=== PATIENT | female | born 1950 | race Caucasian/White ===

== ENCOUNTER → 2016-11-17 | Outpatient (CLI) | payer MEDICARE, BC ==
--- NOTE | 2016-11-17 13:21 | RADIOLOGY REPORT (SQ) ---
EXAM DESCRIPTION: CT HEAD WITHOUT COMPLETED DATE/TIME: 11/17/2016 12:07 pm REASON FOR STUDY: DIZZINESS R42 DIZZINESS AND GIDDINESS COMPARISON: None. TECHNIQUE: Axial images acquired through the brain without intravenous contrast. Images reviewed wi th bone, brain and subdural windows. Images stored on PACS. All CT scanners at this facility use dose modulation, iterative reconstruction, and/or weight based d osing when appropriate to reduce radiation dose to as low as reasonably achievable (ALARA). [facility]: Dose Right [facility]: CareDose [facility]: Dose Right [facility]: Teradose 4D [facility]: Grata RADIATION DOSE: 48.95 mGy. LIMITATIONS: None. FINDINGS: VENTRICLES: Normal size and contour. CEREBRUM: No masses. No hemorrhage. No midline shift. Normal sherman/white matter differentiation. N o evidence for acute infarction. CEREBELLUM: No masses. No hemorrhage. No alteration of density. No evidence for acute infarction. EXTRAAXIAL SPACES: No fluid collections. No masses. ORBITS AND GLOBE: No intra- or extraconal masses. Normal contour of globe without masses. CALVARIUM: No fracture. PARANASAL SINUSES: Small mucosal polyp or retention cyst is identified in the left maxillary antra. SOFT TISSUES: No mass or hematoma. OTHER: No other significant finding. IMPRESSION: NORMAL BRAIN CT WITHOUT CONTRAST. TECHNICAL DOCUMENTATION: JOB ID: [id number] Quality ID # [id number]: Final reports with documentation of one or more dose reduction techniques (e.g., Au tomated exposure control, adjustment of the mA and/or kV according to patient size, use of iterative reconstruction technique) 2010 [employer]- All Rights Reserved
== END ==
LOC: RAD 11:56
PROVIDERS: ATTEND Physician Assistant Medical
DX: R42 Dizziness and giddiness (principal)
CPT/HCPCS: 70450

== ENCOUNTER → 2017-01-03 | Outpatient (CLI) | payer MEDICARE, BC ==
--- NOTE | 2017-01-03 17:11 | WOMENS IMAGING REPORT ---
EXAM DESCRIPTION: 3D SCREENING MAMMO BILAT COMPLETED DATE/TIME: 01/03/2017 10:43 am REASON FOR STUDY: ROUTINE SCREENING; Z12.31 Z12.31 ENCNTR SCREEN MAMMOGRAM FOR MALIGNANT NEOPLASM O F NICK COMPARISON: 2008, 2014 TECHNIQUE: Standard craniocaudal and mediolateral oblique views of each breast recorded using digita l acquisition and breast tomosynthesis. LIMITATIONS: None. FINDINGS: No masses, calcifications or architectural distortion. No areas of suspicion. Read with the assistance of CAD. .[facility] - R2 Cenova Version 1.3 .[facility] Imaging - R2 Cenova Version 1.3 .[facility] - R2 Cenova Version 2.4 .[facility] [place] R2 Cenova Version 2.4 .[facility] - R2 [employer] Version 9.2 IMPRESSION: NORMAL MAMMOGRAM. BIRADS 1. BREAST DENSITY: a. The breasts are almost entirely fatty. BIRAD: 1 NEGATIVE RECOMMENDATION: ROUTINE SCREENING COMMENT: The patient has been notified of the results by letter per [place] requirements. Additional no tification policies are in place for contacting patient with suspicious or incomplete findings. Quality ID #[id number]: The [employer] recommends an annual screening mammogram for women aged 40 years or over. This facility utilizes a reminder system to ensure that all patients receive reminder letters, and/or direct phone calls for appointments. This includes reminders for routine scr eening mammograms, diagnostic mammograms, or other Breast Imaging Interventions when appropriate. Th is patient will be placed in the appropriate reminder system. The [employer] (ACR) has developed recommendations for screening MRI of the breast s in certain patient populations, to be used in conjunction with mammography. Breast MRI surveillanc e may be appropriate for women with more than 20% lifetime risk of developing breast cancer as deter mined by genetic testing, significant family history of the disease, or history of mantle radiation f or Hodgkins Disease. ACR Practice Guidelines 2008. DBT Technology DBT is a type of tomographic mammography. With conventional mammography, overlapping breast tissue ma y make lesions difficult to detect, even with good compression. DBT uses an x-ray tube that rotates a round the breast, taking images at different angles. These images are then combined to create thin sl ices of the breast that the radiologist can view as a 3D reconstruction. The [employer] unit can perform full-field digital mammograms (2D imaging); or DBT (3D imaging); or both, in a combination mode that quickly performs both the mammogram and the tomosynthesis scan while the breast is still compressed. PQRS 6045F: Fluoroscopic imaging is not utilized for breast tomosynthesis. TECHNICAL DOCUMENTATION: FINDING NUMBER: (1) ASSESSMENT: (1) JOB ID: [id number] [employer]- All Rights Reserved
== END ==
LOC: WI 11:07
PROVIDERS: ATTEND Physician Assistant
DX: Z12.31 Encounter for screening mammogram for malignant neoplasm of breast (principal)
CPT/HCPCS: 77063; G0202; 77067

== ENCOUNTER 2017-08-19 15:02 | Inpatient (IN) | payer MEDICARE, BC, OTHER ==
[2017-08-19] MEDS ORDERED: HYDROMORPHONE HCL INJ/PF 2 MG/ML AMPULE IV ONE (15:53)
[2017-08-19] MEDS ORDERED: ONDANSETRON HCL INJ/PF 4 MG/2 ML SDV IV ONE ×2 (15:53→17:20)
--- NOTE | 2017-08-19 15:56 | ER Document Report ---
ED Medical Screen (RME) - General Chief Complaint: Abdominal Pain Stated Complaint: RIGHT SIDE ABDOMINAL PAIN Time Seen by Provider: 08/19/17 15:46 Mode of Arrival: Wheelchair Information source: Patient Notes: 66 y.o female presents to the ED with RLQ pain and nausea of onset last night. She states that she took a magnesium citrate last night because she thought it might be gas but had a normal BM this morning. Pt denies any fever. Pt still has her appendix. TRAVEL OUTSIDE OF THE [place] IN LAST 30 DAYS: No - Related Data Allergies/Adverse Reactions: No Known Allergies Allergy (Verified 08/19/17 15:04) Past Medical History - General Information source: Patient - Social History Chew tobacco use (# tins/day): No Frequency of alcohol use: None Drug Abuse: None Pulmonary Medical History: Reports: Hx Bronchitis - sob Renal/ Medical History: Denies: Hx Peritoneal Dialysis Musculoskeltal Medical History: Reports Hx Arthritis - Immunizations Hx Diphtheria, Pertussis, Tetanus Vaccination: Yes Review of Systems - Review of Systems Constitutional: denies: Fever Gastrointestinal: Abdominal pain - RLQ, Nausea Physical Exam - Vital signs Vitals: Temp Pulse Resp BP Pulse Ox 97.5 F 78 18 139/76 H 98 08/19/17 15:09 08/19/17 15:09 08/19/17 15:09 08/19/17 15:09 08/19/17 15:09 - General General appearance: Alert In distress: None - Respiratory Respiratory status: No respiratory distress - Abdominal Tenderness: Tender - exquisite RLQ tenderness with palpation - Neurological Neuro grossly intact: Yes Cognition: Normal Orientation: AAOx4, Disoriented to events - Psychological Associated symptoms: Normal affect, Normal mood - Skin Skin Temperature: Warm Skin Moisture: Dry Skin Color: Normal Course - Vital Signs Vital signs: Temp Pulse Resp BP Pulse Ox 97.5 F 78 18 139/76 H 98 08/19/17 15:09 08/19/17 15:09 08/19/17 15:09 08/19/17 15:09 08/19/17 15:09 Scribe Documentation - Scribe Written by Scribe:: Mazin Marin 08/19/17 [id number] acting as scribe for :: Alverto
[2017-08-19] MEDS ORDERED: SUCCINYLCHOLINE CHLORIDE INJ 200 MG/10 ML VIAL ONE (16:20)
[2017-08-19] MEDS ORDERED: NEOSTIGMINE METHYLSULFATE 10 MG/10 ML VIAL ONE (16:20)
[2017-08-19] MEDS ORDERED: GLYCOPYRROLATE INJ 0.4 MG/2 ML VIAL ONE (16:20)
[2017-08-19] MEDS ORDERED: ROCURONIUM BROMIDE INJ 50 MG/5 ML VIAL IV ONE (16:20)
--- NOTE | 2017-08-19 16:57 | ER Document Report ---
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 She said the pain is worse with moving. She is also having nausea. She denies vomiting, hematuria, dysuria, rash, numbness, tingling, injury, diarrhea or constipation. TRAVEL OUTSIDE OF THE [place] IN LAST 30 DAYS: No - Related Data Allergies/Adverse Reactions: No Known Allergies Allergy (Verified 08/19/17 15:04) Past Medical History - General Information source: Patient - Social History Smoking Status: Never Smoker Chew tobacco use (# tins/day): No Frequency of alcohol use: None Drug Abuse: None Family History: Reviewed & Not Pertinent Patient has suicidal ideation: No Patient has homicidal ideation: No - Past Medical History Cardiac Medical History: Denies: Hx Heart Attack, Hx Hypertension Pulmonary Medical History: Reports: Hx Bronchitis - sob Denies: Hx Asthma, Hx COPD, Hx Pneumonia Neurological Medical History: Denies: Hx Seizures Renal/ Medical History: Denies: Hx Peritoneal Dialysis Musculoskeltal Medical History: Reports Hx Arthritis - Immunizations Hx Diphtheria, Pertussis, Tetanus Vaccination: Yes Hx Pneumococcal Vaccination: 04/03/12 Review of Systems - Review of Systems Notes: REVIEW OF SYSTEMS: CONSTITUTIONAL: -fevers, -chills EENT: -eye pain, -difficulty swallowing, -nasal congestion CARDIOVASCULAR: -chest pain, -syncope. RESPIRATORY: -cough, -SOB GASTROINTESTINAL: +RLQ abdominal pain, +nausea, -vomiting, -diarrhea GENITOURINARY: -dysuria, -hematuria MUSCULOSKELETAL: -back pain, -neck pain SKIN: -rash or skin lesions. HEMATOLOGIC: -easy bruising or bleeding. LYMPHATIC: -swollen, enlarged glands. NEUROLOGICAL: -altered mental status or loss of consciousness, -headache, - neurologic symptoms PSYCHIATRIC: -anxiety, -depression. ALL OTHER SYSTEMS REVIEWED AND NEGATIVE. Physical Exam - Vital signs Vitals: Temp Pulse Resp BP Pulse Ox 97.5 F 78 18 139/76 H 98 08/19/17 15:09 08/19/17 15:09 08/19/17 15:09 08/19/17 15:09 08/19/17 15:09 - Notes Notes: PHYSICAL EXAMINATION: GENERAL: Well-appearing, well-nourished and in no acute distress. HEAD: Atraumatic, normocephalic. EYES: Pupils equal round and reactive to light, extraocular movements intact, sclera anicteric, conjunctiva are normal. ENT: nares patent, oropharynx clear without exudates. Moist mucous membranes. NECK: Normal range of motion, supple without lymphadenopathy LUNGS: Breath sounds clear to auscultation bilaterally and equal. No wheezes rales or rhonchi. HEART: Regular rate and rhythm without murmurs ABDOMEN: Soft, moderate RLQ tenderness, normoactive bowel sounds. +guarding, + rebound. No masses appreciated. EXTREMITIES: Normal range of motion, no pitting or edema. No cyanosis. NEUROLOGICAL: Cranial nerves grossly intact. Normal speech, normal gait. Normal sensory and motor exams. PSYCH: Normal mood, normal affect. SKIN: Warm, Dry, normal turgor, no rashes or lesions noted. Course - Re-evaluation Re-evalutation: 66-year-old female with 2 days of worsening right lower quadrant pain that is worse when she moves. CT abdomen and pelvis ordered for concern about appendicitis and it shows evidence of early appendicitis. Her pain and nausea are under control unless she moves and that she feels nauseous again. Vital signs are normal. 08/19/17 20:[address] Forbes and will admit patient. - Vital Signs Vital signs: Temp Pulse Resp BP Pulse Ox 98.1 F 64 18 151/76 H 98 08/19/17 18:52 08/19/17 18:52 08/19/17 18:52 08/19/17 18:52 08/19/17 18:52 - Laboratory Result Diagrams: 08/19/17 17:00 08/19/17 17:00 Laboratory results interpreted by me: 08/19/17 08/19/17 08/19/17 17:00 17:00 18:43 WBC 11.0 H Sodium 136.1 L Glucose 132 H C-Reactive Protein 24.5 H Urine Ascorbic Acid 20 H - Diagnostic Test Radiology reviewed: Image reviewed, Reports reviewed Radiology results interpreted by me: CT A/P: Mildly dilated shortened appendix with adjacent inflammatory changes suggesting early appendicitis. Discharge - Discharge Clinical Impression: Appendicitis Qualifiers: Appendicitis type: acute appendicitis Acute appendicitis type: with localized peritonitis Qualified Code(s): K35.3 - Acute appendicitis with localized peritonitis Condition: Stable Disposition: ADMITTED INPATIENT Admitting Provider: Surgicalist - [place] [facility] Admitted: Surgical Floor
[2017-08-19 17:16] LABS: ABSOLUTE BASOPHILS # (AUTO) 0.1 10^3/uL (0.0-0.2); ABSOLUTE EOSINOPHILS # (AUTO) 0.2 10^3/uL (0.0-0.6); ABSOLUTE LYMPHOCYTES (AUTO) 1.5 10^3/uL (0.5-4.7); ABSOLUTE NEUT (AUTO) 8.2 10^3/uL (1.7-8.2); BASOPHILS % (AUTO) 0.7 % (0-2); EOSINOPHILS % (AUTO) 1.6 % (0-6); HEMATOCRIT 37.9 % (36.0-47.0); HEMOGLOBIN 12.5 g/dL (12.0-15.5); MEAN CORPUSCULAR HEMOGLOBIN 28.9 pg (27.0-33.4); MEAN CORPUSCULAR VOLUME 88 fl (80-97); MONOCYTES % (AUTO) 9.4 % (3-13); PLATELET COUNT 295 10^3/uL (150-450); RED BLOOD COUNT 4.33 10^6/uL (3.72-5.28); SEGMENTED NEUTROPHILS % (AUTO) 74.3 % (42-78); TOTAL CELLS COUNTED % (AUTO) 100 %
[2017-08-19 17:37] LABS: ALANINE AMINOTRANSFERASE 31 U/L (9-52); ALBUMIN 3.7 g/dL (3.5-5.0); ALKALINE PHOSPHATASE 59 U/L (38-126); ANION GAP 12 (5-19); ASPARTATE AMINO TRANSFERASE 18 U/L (14-36); BILIRUBIN,DIRECT 0.3 mg/dL (0.0-0.4); BILIRUBIN,TOTAL 0.6 mg/dL (0.2-1.3); BLOOD UREA NITROGEN 15 mg/dL (7-20); C-REACTIVE PROTEIN 24.5 mg/L (<10.0); CALCIUM 8.9 mg/dL (8.4-10.2); CARBON DIOXIDE 24 mmol/L (22-30); CHLORIDE 100 mmol/L (98-107); GLUCOSE 132 mg/dL (75-110); POTASSIUM 4.4 mmol/L (3.6-5.0); SODIUM 136.1 mmol/L (137-145); TOTAL PROTEIN 6.7 g/dL (6.3-8.2)
[2017-08-19 18:57] LABS: APPEARANCE,URINE SLIGHTLY-CLOUDY; BILIRUBIN,URINE NEGATIVE (NEGATIVE); COLOR,URINE YELLOW; GLUCOSE, URINE NEGATIVE (NEGATIVE); KETONES,URINE NEGATIVE (NEGATIVE); LEUKOCYTE ESTERASE,URINE NEGATIVE (NEGATIVE); NITRITE,URINE NEGATIVE (NEGATIVE); PROTEIN,URINE NEGATIVE (NEGATIVE); URINE SPECIFIC GRAVITY 1.021; UROBILINOGEN,URINE NEGATIVE mg/dL (<2.0)
--- NOTE | 2017-08-19 19:34 | RADIOLOGY REPORT (SQ) ---
EXAM DESCRIPTION: CT ABD/PELVIS WITH IV ORAL COMPLETED DATE/TIME: 08/19/2017 7:15 pm REASON FOR STUDY: RLQ pain, worsening since last night COMPARISON: None. TECHNIQUE: CT scan of the abdomen and pelvis performed using helical scanning technique with dynamic intravenous contrast injection. No oral contrast. Images reviewed with lung, soft tissue, and bone windows. Reconstructed coronal and sagittal MPR images reviewed. Delayed images for evaluation of the urinary system also acquired. All images stored on PACS. All CT scanners at this facility use dose modulation, iterative reconstruction, and/or weight based d osing when appropriate to reduce radiation dose to as low as reasonably achievable (ALARA). [facility]: Dose Right [facility]: CareDose [facility]: Dose Right [facility]: Teradose 4D [facility]: FaceAlerta CONTRAST TYPE AND DOSE: contrast/concentration: Isovue 370.00 mg/ml; Total Contrast Delivered: 100.0 ml; Total Saline Delivered: 48.4 ml RENAL FUNCTION: GFR > 60. RADIATION DOSE: CT Rad equipment meets quality standard of care and radiation dose reduction techniq ues were employed. CTDIvol: 18.5 - 20.6 mGy. DLP: 2053 mGy-cm.. LIMITATIONS: None. FINDINGS: LOWER CHEST: 7 cm hiatus hernia. No nodules or infiltrates. LIVER: Normal size. No masses. No dilated ducts. SPLEEN: Normal size. No focal lesions. PANCREAS: No masses. No significant calcifications. No adjacent inflammation or peripancreatic fluid collections. Pancreatic duct not dilated. GALLBLADDER: Surgically absent. ADRENAL GLANDS: No significant masses or asymmetry. RIGHT KIDNEY AND URETER: No solid masses. No significant calcifications. No hydronephrosis or hyd roureter. LEFT KIDNEY AND URETER: No solid masses. No significant calcifications. No hydronephrosis or hydr oureter. AORTA AND VESSELS: No aneurysm. No dissection. Renal arteries, SMA, celiac without stenosis. RETROPERITONEUM: No retroperitoneal adenopathy, hemorrhage or masses. BOWEL AND PERITONEAL CAVITY: No obstruction. Diverticulosis. . No free fluid or peritoneal masses. APPENDIX: Mildly dilated with adjacent inflammatory changes suggesting early appendicitis. PELVIS: No mass. No free fluid. Normal bladder. ABDOMINAL WALL: No masses. Small fat containing paraumbilical hernia. . BONES: No acute findings. OTHER: No other significant finding. IMPRESSION: Mildly dilated shortened appendix with adjacent inflammatory changes suggesting early ap pendicitis. TECHNICAL DOCUMENTATION: JOB ID: [id number] [id number] Quality ID # [id number]: Final reports with documentation of one or more dose reduction techniques (e.g., Au tomated exposure control, adjustment of the mA and/or kV according to patient size, use of iterative reconstruction technique) 2010 [employer]- All Rights Reserved Reading location - IP/workstation name: [employer]
[2017-08-19] MEDS ORDERED: HYDROMORPHONE HCL INJ/PF 2 MG/ML AMPULE IV PRN (20:21)
[2017-08-19] MEDS ORDERED: ONDANSETRON HCL INJ/PF 4 MG/2 ML SDV IV PRN (20:21)
[2017-08-19] MEDS ORDERED: NORMAL SALINE 1000 ML 1,000 ML IV ONE (20:21)
[2017-08-19] MEDS ORDERED: RINGERS SOLUTION,LACTATED 1,000 ML IV PRN (22:00)
[2017-08-19] MEDS ORDERED: KETOROLAC TROMETHAMINE INJ/PF 30 MG/1 ML SDV IV PRN (22:02)
[2017-08-19] MEDS ORDERED: AMPICILLIN SOD/SULBACTAM 3 GM VIAL IV PRN (22:03)
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
[2017-08-20] MEDS: AMPICILLIN SODIUM/SULBACTAM NA 3 GM in NORMAL SALINE 100 ML IV SCH ×2 (00:18→07:43)
--- NOTE | 2017-08-20 04:12 | RADIOLOGY REPORT (SQ) ---
EXAM DESCRIPTION: CHEST SINGLE VIEW CLINICAL HISTORY: COPD. Preoperative evaluation. COMPARISON: None. FINDINGS: Single frontal view of the chest. Atherosclerotic calcification of the aortic arch. Heart is not enlarged. No consolidation, pneumothorax, or pleural effusion. No displaced rib fractures identified. Upper abdominal soft tissues are unremarkable. IMPRESSION: 1. No acute pulmonary process identified.
--- NOTE | 2017-08-20 07:49 | EKG REPORT ---
SEVERITY:- BORDERLINE ECG - SINUS RHYTHM ATRIAL PREMATURE COMPLEX LVH BY VOLTAGE : Confirmed by: Efren Travis MD 20-Aug-2017 07:48:30
[2017-08-20] MEDS ORDERED: FENTANYL CITRATE INJ/PF 100 MCG/2 ML AMPUL ONE (08:47)
[2017-08-20] MEDS ORDERED: MIDAZOLAM 2 MG/2 ML INJ ONE (08:47)
[2017-08-20] MEDS ORDERED: DEXAMETHASONE SOD PHOSPHATE INJ 4 MG/1 ML VIAL ONE (08:47)
[2017-08-20] MEDS ORDERED: ACETAMINOPHEN 100 ML IV ONE (08:48)
[2017-08-20] MEDS ORDERED: HYDROMORPHONE HCL INJ/PF 2 MG/ML AMPULE ONE ×2 (08:48→11:40)
[2017-08-20] MEDS ORDERED: ONDANSETRON HCL INJ/PF 4 MG/2 ML SDV ONE (08:48)
[2017-08-20] MEDS ORDERED: PROPOFOL INJ 200 MG/20 ML VIAL IV ONE (08:48)
[2017-08-20] MEDS ORDERED: DIPHENHYDRAMINE HCL 50 MG/ML VIAL IV PRN (10:05)
[2017-08-20] MEDS ORDERED: MEPERIDINE HCL/PF INJ 25 MG/1 ML DISP.SYRIN IV PRN (10:05)
[2017-08-20] MEDS ORDERED: PROMETHAZINE HCL INJ 25 MG/1 ML VIAL IV PRN ×2 (10:05)
[2017-08-20] MEDS ORDERED: MORPHINE SULFATE 10 MG/ML INJ IV PRN (10:05)
[2017-08-20] MEDS ORDERED: FENTANYL CITRATE INJ/PF 100 MCG/2 ML AMPUL IV PRN ×3 (10:05)
[2017-08-20] MEDS ORDERED: BUPIVACAINE HCL 0.25 % INJ/PF (2.5 MG/1 ML) 30 ML VIAL ONE (10:49)
[2017-08-20] MEDS ORDERED: PIPERACILLIN SODIUM/TAZOBACTAM 3.375 GM in NORMAL SALINE 100 ML IV ONE (13:00)
[2017-08-20] MEDS: ONDANSETRON HCL INJ/PF 4 MG/2 ML SDV IV PRN (15:10)
[2017-08-20] MEDS: NORMAL SALINE 1000 ML 1,000 ML IV PRN ×2 (15:11→21:33)
[2017-08-20] MEDS: HYDROMORPHONE HCL INJ/PF 2 MG/ML AMPULE IV PRN (17:56)
[2017-08-20] MEDS ORDERED: PIPERACILLIN SODIUM/TAZOBACTAM 3.375 GM in NORMAL SALINE 100 ML IV SCH (18:00)
[2017-08-21] MEDS: HYDROMORPHONE HCL INJ/PF 2 MG/ML AMPULE IV PRN ×4 (00:50→20:33)
[2017-08-21] MEDS: ONDANSETRON HCL INJ/PF 4 MG/2 ML SDV IV PRN ×4 (01:05→20:33)
[2017-08-21] MEDS: PIPERACILLIN SODIUM/TAZOBACTAM 3.375 GM in NORMAL SALINE 100 ML IV SCH ×4 (03:33→20:34)
[2017-08-21] MEDS: NORMAL SALINE 1000 ML 1,000 ML IV PRN (12:02)
[2017-08-21] MEDS ORDERED: ENOXAPARIN SODIUM INJ 40 MG/0.4 ML DISP.SYRIN SUBCUT ONE (21:00)
--- NOTE | 2017-08-21 21:11 | PDOC PROGRESS REPORT ---
Subjective Progress Note for:: 08/21/17 Subjective:: incisional pains Reason For Visit: ACUTE APPENDICITIS Physical Exam Vital Signs: Temp Pulse Resp BP Pulse Ox 97.4 F 58 L 18 150/72 H 92 08/21/17 19:52 08/21/17 19:52 08/21/17 16:00 08/21/17 19:52 08/21/17 19:52 Intake & Output 08/20/17 08/21/17 08/22/17 06:59 06:59 06:59 Intake Total 4200 1830 Output Total 3200 3870 Balance 1000 -2040 Weight 98.2 kg 98.2 kg General appearance: PRESENT: no acute distress Exam: Abdominal dressings intact.Abd nondistended NGT small amount of greenish drainage Results Impressions: Abdomen/Pelvis CT 08/19/17 15:52 IMPRESSION: Mildly dilated shortened appendix with adjacent inflammatory changes suggesting early appendicitis. Chest X-Ray 08/19/17 22:00 IMPRESSION: 1. No acute pulmonary process identified. Assessment & Plan - Diagnosis (1) Cecal lesion Is this a current diagnosis for this admission?: Yes - Time Time Spent with patient: 15-24 minutes - Inpatient Certification Medical Necessity: Need For IV Fluids, Need for Pain Control, Need for IV Antibiotics - Plan Summary Plan Summary: Continue NPO and NGT Continue ambulation Continue IV antibiotics Await pathology report.Maybe an infected Meckel's
--- NOTE | 2017-08-21 22:53 | OPERATIVE REPORT E ---
Operative Report NAME: ANTHONY BECERRIL : 1950 AGE: 66Y DATE OF SURGERY: 08/20/2017 ROOM: 212 PREOPERATIVE DIAGNOSIS: Acute appendicitis. 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 OPERATION: Resection of cecum and kinked small bowel with primary ileocolic anastomosis. SURGEON: VINCE BARRIENTOS M.D. ANESTHESIA: General. INDICATION: This is a 66-year-old female who was admitted for abdominal pain. CAT scan revealed acute appendicitis. Her white count slightly elevated and tender in the right lower quadrant. DESCRIPTION OF PROCEDURE: After adequate general anesthesia, the patient was placed in the supine position, and the abdomen prepped and draped in the usual sterile fashion. Appropriate time-out was then called. Next, an epigastric midline incision made and fascia identified and subsequently divided and Sydnie trocar inserted. CO2 was then insufflated. This area was favored because patient having mesh around the area of the umbilicus placed in the past and we were trying to avoid injuring the mesh. Next, two other trocars were placed, a 5 mm in the suprapubic area and a 5 mm in the right upper quadrant. The bowel cavity was then inspected and there appears to be a mass or a lesion on anterior aspect of the cecum. However, the appendix was noted to be completely normal. Because of the need to resect the cecum, the procedure was then converted to an open technique. A right paramedian incision was then made from the epigastric site to just below the umbilicus. This was done a little lateral to the mesh that was placed in the past. The abdominal cavity was then opened and the cecum identified. It was brought up into the abdominal cavity. The cecum has a mass that is inflamed on the anterior aspect roughly measuring about 4 x 4 cm. This may well likely be inflamed Meckel's diverticulum. At any rate the cecum was then bluntly dissected and subsequently divided with TONJA stapler at least 5 cm from the noted lesion. This was done in case it turns out to be malignant. Next, the small noted to be somewhat kinked with adhesions from the ileum close to the cecum. This was about 2 feet. This was then resected after this side was noted to be somewhat inflamed and thickened. A soft spot on the ileum was identified and this was then divided with TONJA stapler. The mesentery was then divided with the use of a patent scissors. Adequate hemostasis was noted. Next, the small bowel was anastomosed [id number] to the large bowel with the use of TONJA 75 cm. The opening for the placement of the TONJA was then closed with TA60. Again, adequate hemostasis was noted. Next, the staple line of the distal end was then reinforced with 2 sutures of 2-0 silk. The rest of the abdominal cavity was then palpated and no other obvious abnormality noted. NG tube was placed and palpated in the area of the stomach. Next, the abdominal cavity was gently irrigated and the omentum placed over the area of the anastomotic site. The posterior fascia was then closed with running suture using PDS and anterior fascia closed with running suture using #1 PDS. Subcutaneous was then irrigated and the skin closed with kristie. The fascia defect of the epigastric area for the laparoscope was subsequently closed with a [id number] suture using #0 Vicryl. The skin also closed with kristie. The trocar sites also closed with kristie. Sterile dressings were placed over the operative sites. Needle, instrument, and sponge counts were all corrected. Estimated blood loss about 50 mL. Patient brought to the recovery room in satisfactory condition. DICTATING PHYSICIAN: VINCE BARRIENTOS M.D. [id number] Y#: [id number] ID: [id number] JOB#: [id number] ACCT: [id number] cc:VINCE BARRIENTOS M.D. >
[2017-08-22] MEDS: PIPERACILLIN SODIUM/TAZOBACTAM 3.375 GM in NORMAL SALINE 100 ML IV SCH ×4 (02:42→23:18)
[2017-08-22] MEDS: HYDROMORPHONE HCL INJ/PF 2 MG/ML AMPULE IV PRN ×3 (05:09→19:59)
[2017-08-22] MEDS: ONDANSETRON HCL INJ/PF 4 MG/2 ML SDV IV PRN ×3 (05:10→19:59)
[2017-08-22] MEDS: ENOXAPARIN SODIUM INJ 40 MG/0.4 ML DISP.SYRIN SUBCUT SCH (09:24)
[2017-08-22] MEDS: NORMAL SALINE 1000 ML 1,000 ML IV PRN ×2 (12:04→23:18)
--- NOTE | 2017-08-22 12:39 | PDOC PROGRESS REPORT ---
Subjective Progress Note for:: 08/22/17 Subjective:: decreasing incisional pains Reason For Visit: ACUTE APPENDICITIS Physical Exam Vital Signs: Temp Pulse Resp BP Pulse Ox 98.5 F 56 L 20 156/89 H 99 08/22/17 08:27 08/22/17 08:27 08/22/17 08:27 08/22/17 08:27 08/22/17 08:27 Intake & Output 08/21/17 08/22/17 08/23/17 06:59 06:59 06:59 Intake Total 4200 1830 Output Total 3200 5970 Balance 1000 -4140 Weight 98.2 kg Exam: abd is soft with mild tenderness along incision site NGT decreasing Results Impressions: Abdomen/Pelvis CT 08/19/17 15:52 IMPRESSION: Mildly dilated shortened appendix with adjacent inflammatory changes suggesting early appendicitis. Chest X-Ray 08/19/17 22:00 IMPRESSION: 1. No acute pulmonary process identified. Assessment & Plan - Diagnosis (1) Cecal lesion Is this a current diagnosis for this admission?: Yes - Time Time Spent with patient: 15-24 minutes - Plan Summary Plan Summary: D/C NGT Start sips of clears OOB Continue IV antibiotics
[2017-08-23] MEDS: PIPERACILLIN SODIUM/TAZOBACTAM 3.375 GM in NORMAL SALINE 100 ML IV SCH ×4 (04:22→21:00)
[2017-08-23] MEDS: ONDANSETRON HCL INJ/PF 4 MG/2 ML SDV IV PRN ×2 (04:23→16:33)
[2017-08-23] MEDS ORDERED: PROMETHAZINE HCL INJ 25 MG/1 ML VIAL IV PRN ×2 (08:27→09:00)
[2017-08-23] MEDS: NORMAL SALINE 1000 ML 1,000 ML IV PRN ×2 (09:17→17:57)
[2017-08-23] MEDS: ENOXAPARIN SODIUM INJ 40 MG/0.4 ML DISP.SYRIN SUBCUT SCH (10:41)
[2017-08-23] MEDS ORDERED: DEXTROSE 50%-WATER 25 GM/50 ML DISP.SYRIN IV PRN ×2 (11:11)
[2017-08-23] MEDS ORDERED: GLUCAGON,HUMAN RECOMB 1 MG INJ SUBCUT PRN (11:11)
[2017-08-23] MEDS ORDERED: DEXTROSE 40% GEL 15 GM TUBE PO PRN ×2 (11:11)
--- NOTE | 2017-08-23 11:11 | PDOC PROGRESS REPORT ---
Subjective Progress Note for:: 08/23/17 Subjective:: Past a little bit of gas today. But she is vomiting the clears that she is taking in. No bilious emesis. Otherwise patient feels fine. Reason For Visit: ACUTE APPENDICITIS Physical Exam Vital Signs: Temp Pulse Resp BP Pulse Ox 99.0 F 71 20 157/81 H 98 08/23/17 08:08 08/23/17 08:08 08/23/17 08:08 08/23/17 08:08 08/23/17 08:08 Intake & Output 08/22/17 08/23/17 08/24/17 06:59 06:59 06:59 Intake Total 1830 500 Output Total 5970 1800 500 Balance -4140 -1300 -500 General appearance: PRESENT: no acute distress, cooperative Respiratory exam: PRESENT: clear to auscultation tj Cardiovascular exam: PRESENT: RRR GI/Abdominal exam: PRESENT: other - Soft, nondistended, minimal tenderness. Diminished bowel sounds. Results Impressions: Abdomen/Pelvis CT 08/19/17 15:52 IMPRESSION: Mildly dilated shortened appendix with adjacent inflammatory changes suggesting early appendicitis. Chest X-Ray 08/19/17 22:00 IMPRESSION: 1. No acute pulmonary process identified. Assessment & Plan - Diagnosis (1) Cecal lesion Is this a current diagnosis for this admission?: Yes Plan: Status post cecectomy. Patient looks okay other than postoperative ileus. Hold off diet for now encourage ambulation. Check electrolytes.
[2017-08-23 12:10] LABS: ANION GAP 6 (5-19); BLOOD UREA NITROGEN 12 mg/dL (7-20); CALCIUM 8.5 mg/dL (8.4-10.2); CARBON DIOXIDE 27 mmol/L (22-30); CHLORIDE 104 mmol/L (98-107); GLUCOSE 128 mg/dL (75-110); POTASSIUM 4.2 mmol/L (3.6-5.0); SODIUM 136.6 mmol/L (137-145)
[2017-08-24] MEDS: PIPERACILLIN SODIUM/TAZOBACTAM 3.375 GM in NORMAL SALINE 100 ML IV SCH ×4 (03:00→21:00)
[2017-08-24] MEDS: NORMAL SALINE 1000 ML 1,000 ML IV PRN ×2 (03:30→21:00)
[2017-08-24] MEDS: ENOXAPARIN SODIUM INJ 40 MG/0.4 ML DISP.SYRIN SUBCUT SCH (09:48)
[2017-08-24] MEDS ORDERED: HYDRALAZINE HCL INJ/PF 20 MG/1 ML SDV IV PRN (15:10)
[2017-08-24] MEDS ORDERED: FUROSEMIDE 20 MG TABLET PO ONE (15:30)
[2017-08-24] MEDS ORDERED: METOPROLOL TARTRATE 25 MG TABLET PO ONE (16:00)
--- NOTE | 2017-08-24 17:56 | PDOC CONSULTATION ---
Consultation Consult Date: 08/24/17 Attending physician:: WILLY VIZCARRA Consult reason:: HTN History of Present Illness Admission Date/PCP: 08/19/17 20:40 Patient complains of: abdominal pain History of Present Illness: ANTHONY BECERRIL is a 66 year old female Patient presents emergency department complaining of acute onset abdominal pain earlier today associated with anorexia, right lower quadrant tenderness, and nausea but no vomiting. Last bowel movement was earlier today, normal. Patient denies similar episodes. She denies fever chills. Was evaluated in the emergency department where she was found to have right lower quadrant tenderness, leukocytosis, and CT scan findings consistent with acute appendicitis. Surgery was consulted for definitive management. Went to the OR and found to have cecal mass s/p cecectomy. OP note not currently available. Has been doing better post op, especially today. Abdominal pain markedly improved. Able tolerates POs today. Noted to have elevated blood pressure. Patient has known HTN and treated with Lisinopril. Hospitalist consulted for HTN management recommendations. Past Medical History Cardiac Medical History: Reports: Other - Some sort of heart problem, being evaluated by Dr. Bailey; atypical chest pa Denies: Myocardial Infarction, Hypertension Pulmonary Medical History: Reports: Bronchitis - sob, Sleep Apnea - Uses CPAP Denies: Asthma, Chronic Obstructive Pulmonary Disease (COPD), Pneumonia Neurological Medical History: Denies: Seizures Endocrine Medical History: Reports: Other - Overweight Malignancy Medical History: Reports: Other - History of superficial venous thrombophlebitis Musculoskeltal Medical History: Reports: Arthritis, Other - Rotator cuff repair right shoulder Psychiatric Medical History: Denies: Depression Hematology: Denies: Anemia Past Surgical History Past Surgical History: Reports: Other - Umbilical hernia repair 2013 Dr. Forbes with mesh; Social History Information Source: Patient Smoking Status: Never Smoker Frequency of Alcohol Use: Occasional Hx Recreational Drug Use: No - 6 months ago Drugs: None Hx Prescription Drug Abuse: No - Advance Directive Resuscitation Status: Full Code Family History Family History: Reviewed & Not Pertinent, Other - Strong family history of pulmonary disease, COPD, early Parental Family History Reviewed: No Children Family History Reviewed: NA Sibling(s) Family History Reviewed.: NA Medication/Allergy Home Medications: Fluticasone Propionate [Flonase Nasal [place] 50 Mcg/[place] 16 gm] 1 spray NASL DAILY 08/20/17 Furosemide [Lasix 20 mg Tablet] 20 mg PO QAM 08/20/17 Meloxicam [Mobic] 7.5 mg PO DAILY 08/20/17 Omeprazole 20 mg PO DAILY 08/20/17 Allergies/Adverse Reactions: No Known Allergies Allergy (Verified 08/19/17 15:04) Review of Systems All systems: reviewed and no additional remarkable complaints except as stated Physical Exam Vital Signs: Temp Pulse Resp BP Pulse Ox 98.6 F 52 L 18 154/89 H 98 08/24/17 17:07 08/24/17 17:07 08/24/17 17:07 08/24/17 17:07 08/24/17 17:07 Intake & Output 08/23/17 08/24/17 08/25/17 06:59 06:59 06:59 Intake Total 500 Output Total 1800 1350 Balance -1300 -1350 Weight 98.2 kg General appearance: PRESENT: no acute distress, obese Head exam: PRESENT: normocephalic Mouth exam: PRESENT: moist Teeth exam: PRESENT: poor dentation Respiratory exam: PRESENT: unlabored. ABSENT: tachypnea, wheezes Cardiovascular exam: PRESENT: RRR, +S1, +S2. ABSENT: systolic murmur, tachycardia GI/Abdominal exam: PRESENT: tenderness - mild. ABSENT: soft Musculoskeletal exam: PRESENT: ambulatory Neurological exam: PRESENT: alert, awake, oriented to person, oriented to place , oriented to time, CN II-XII grossly intact Psychiatric exam: PRESENT: appropriate affect Results Laboratory Results: 08/23/17 11:37 Impressions: Abdomen/Pelvis CT 08/19/17 15:52 IMPRESSION: Mildly dilated shortened appendix with adjacent inflammatory changes suggesting early appendicitis. Chest X-Ray 08/19/17 22:00 IMPRESSION: 1. No acute pulmonary process identified. Assessment & Plan - Diagnosis (1) HTN (hypertension) Qualifiers: Hypertension type: essential hypertension Qualified Code(s): I10 - Essential (primary) hypertension Is this a current diagnosis for this admission?: Yes Plan: Known history of HTN, on Lasix at home - Had TTE one year ago, per patient had LVH - Blood pressures likely elevated to pain and now that patient is more active, as clinically improved - Re-started home Lasix (1st dose today) - Initially started Lopressor 12.5mg BID, however discontinued as HR <60. Will start Lisinopril 10g daily. Can uptitrate if SBP>140 on 3/3 - Ordered Hydralazine 10mg IV q6 hours PRN SBP>180 (2) Cecal lesion Is this a current diagnosis for this admission?: Yes Plan: Found to have Cecal mass - Per path report: ULCERATED COLONIC MUCOSA WITH TRANSMURAL INFLAMMATION AND SEROSITIS SEEN IN CECUM, NEGATIVE FOR DYSPLASIA AND MALIGNANCY, FIBROUS OBLITERATION OF THE APPENDIX. NEGATIVE FOR INFLAMMATION AND MALIGNANCY - Improving clinically - D/c per surgery plan - Time Time Spent: 30 to 50 Minutes Anticipated discharge: Home Within: within 48 hours
[2017-08-24] MEDS ORDERED: LISINOPRIL 10 MG TABLET PO SCH (18:00)
--- NOTE | 2017-08-24 20:03 | PDOC PROGRESS REPORT ---
Subjective Progress Note for:: 08/24/17 Subjective:: Had BM today.Minimal incisional pans Reason For Visit: ACUTE APPENDICITIS Physical Exam Vital Signs: Temp Pulse Resp BP Pulse Ox 98.6 F 52 L 18 154/89 H 98 08/24/17 17:07 08/24/17 17:07 08/24/17 17:07 08/24/17 17:07 08/24/17 17:07 Intake & Output 08/23/17 08/24/17 08/25/17 06:59 06:59 06:59 Intake Total 500 Output Total 1800 1350 Balance -1300 -1350 Weight 98.2 kg Exam: abd soft with minimal tenderness Results Laboratory Results: 08/23/17 11:37 Impressions: Abdomen/Pelvis CT 08/19/17 15:52 IMPRESSION: Mildly dilated shortened appendix with adjacent inflammatory changes suggesting early appendicitis. Chest X-Ray 08/19/17 22:00 IMPRESSION: 1. No acute pulmonary process identified. Assessment & Plan - Diagnosis (1) Cecal lesion Is this a current diagnosis for this admission?: Yes - Time Time Spent with patient: 15-24 minutes - Inpatient Certification Medical Necessity: Need For IV Fluids, Need for Pain Control, Need for IV Antibiotics - Plan Summary Plan Summary: Start liquid diet and progress as tolerated. Home tomorrow if tolerates soft diet
[2017-08-24] MEDS ORDERED: METOPROLOL TARTRATE 25 MG TABLET PO SCH (22:00)
[2017-08-25] MEDS: PIPERACILLIN SODIUM/TAZOBACTAM 3.375 GM in NORMAL SALINE 100 ML IV SCH ×3 (03:02→14:31)
[2017-08-25] MEDS ORDERED: FUROSEMIDE 20 MG TABLET PO SCH (08:00)
[2017-08-25] MEDS: ENOXAPARIN SODIUM INJ 40 MG/0.4 ML DISP.SYRIN SUBCUT SCH (09:39)
[2017-08-25 17:22] VITALS: BP 152/65
--- NOTE | 2017-08-25 23:53 | DISCHARGE SUMMARY E ---
Discharge Summary NAME: ANTHONY BECERRIL : 1950 AGE: 66Y ADMITTED: 08/19/2017 DISCHARGED: 08/25/2017 FINAL DIAGNOSIS: Ulcerated colonic mucosa with transmural inflammation and serositis in cecum. PROCEDURE DONE: Resection of cecum and small bowel with ileocolic primary anastomosis, date 08/20/17. Surgeon, Dr. Trujillo. HOSPITAL COURSE: The patient complained of right lower quadrant pains and CT scan revealed a possible acute appendicitis. The patient underwent resection of the colon since the lesion appears to be right on the colon which is quite inflamed. Appendix noted to be normal. The cecum with appendix was resected as well as the coiled small bowel from the cecum. Primary ileocolic anastomosis was done. Postoperatively the patient gradually improved and had a bowel movement on 08/24/17 and started on clear liquids, then able to tolerated soft diet on the day of discharge on 08/25/17. The patient then discharged improved without any pain medications since she say she does not need it. I just told her to take Tylenol p.r.n. for pain. The patient advised not to do any heavy lifting more than 10 pounds for the next 2 weeks. Arrangements will be made for her to be seen at the surgical clinic in 2 weeks. DICTATING PHYSICIAN: VINCE TRUJILLO M.D. [id number] [facility]#: [id number] ID: [id number] JOB#: [id number] ACCT: [id number] cc:Cheryl MCNULTY M.D. >
== END 2017-08-25 17:46 | disposition home or self-care (01) | DRG 329 ==
LOC: ER 15:02 → EH 20:40 → 2N 21:15
PROVIDERS: ADMIT Surgery; ATTEND Surgery
PROC: 0DB80ZZ Excision of Small Intestine, Open Approach (ICD-10-PCS; 2017-08-20)
PROC: 0DTJ0ZZ Resection of Appendix, Open Approach (ICD-10-PCS; 2017-08-20)
PROC: 0DJD4ZZ Inspection of Lower Intestinal Tract, Percutaneous Endoscopic Approach (ICD-10-PCS; 2017-08-20)
PROC: 0DTH0ZZ Resection of Cecum, Open Approach (ICD-10-PCS; principal; 2017-08-20 09:00)
DX: K63.3 Ulcer of intestine (principal); K35.3 Acute appendicitis with localized peritonitis; Z68.41 Body mass index [BMI] 40.0-44.9, adult; K56.7 Ileus, unspecified; R63.0 Anorexia; I10 Essential (primary) hypertension; G47.30 Sleep apnea, unspecified; M19.90 Unspecified osteoarthritis, unspecified site; E66.9 Obesity, unspecified; E03.9 Hypothyroidism, unspecified; Q43.0 Meckel's diverticulum (displaced) (hypertrophic); Z79.82 Long term (current) use of aspirin; Z79.899 Other long term (current) drug therapy; Z53.31 Laparoscopic surgical procedure converted to open procedure; Z90.49 Acquired absence of other specified parts of digestive tract; Z83.6 Family history of other diseases of the respiratory system
CPT/HCPCS: 36415; 71045; 74177; 80048; 80053; 81001; 840; 85025; 86140; 88307; 93005; 93010; 96374; 96375; 96376; 99285; J0131; J0295; J0330; J1100; J1170; J1650; J2250; J2405; J2543; J2550; J2704; J3010; J3490; J7030; J7120

== ENCOUNTER 2017-08-31 10:22 | Inpatient (IN) | payer MEDICARE, BC, OTHER ==
[2017-08-31] MEDS ORDERED: FENTANYL CITRATE INJ/PF 100 MCG/2 ML AMPUL IV ONE ×2 (10:57→13:11)
[2017-08-31] MEDS ORDERED: ONDANSETRON HCL INJ/PF 4 MG/2 ML SDV IV ONE (10:57)
--- NOTE | 2017-08-31 11:00 | ER Document Report ---
ED Medical Screen (RME) - General Chief Complaint: Post Surgical Pain Stated Complaint: ABDOMINAL PAIN Time Seen by Provider: 08/31/17 10:53 Notes: RME DISCLOSURE I have seen this patient as part of a Rapid Medical Evaluation and, if applicable, placed any initially appropriate orders. The patient will be seen and fully evaluated, including a full history and physical exam, by a provider ( in Main ED or Fast Track) when a room becomes available. 66-year-old female status post recent abdominal surgery here at [facility] back with complaints of right-sided upper and lower abdominal pain that started in the past day. She has had some nausea but no vomiting. She has had diarrhea but states that the diarrhea has been there ever since the surgery and is not a new thing. She has not taken anything for the pain. She did have a fever of 100.4, she reports. EXAM Tender right upper and lower quadrants Previous midline surgical incision in place TRAVEL OUTSIDE OF THE [place] IN LAST 30 DAYS: No - Related Data Allergies/Adverse Reactions: No Known Allergies Allergy (Verified 08/31/17 10:24) Past Medical History - Social History Frequency of alcohol use: None Drug Abuse: None - Past Medical History Cardiac Medical History: Denies: Hx Heart Attack, Hx Hypertension Pulmonary Medical History: Reports: Hx Bronchitis - sob, Hx Sleep Apnea - Uses CPAP Denies: Hx Asthma, Hx COPD, Hx Pneumonia Neurological Medical History: Denies: Hx Seizures Renal/ Medical History: Denies: Hx Peritoneal Dialysis Musculoskeltal Medical History: Reports Hx Arthritis Psychiatric Medical History: Denies: Hx Depression Past Surgical History: Reports: Other - Umbilical hernia repair 2013 Dr. Forbes with mesh; - Immunizations Hx Diphtheria, Pertussis, Tetanus Vaccination: Yes History of Influenza Vaccine for 03/2017 - 08/2017 Season: Refused Physical Exam - Vital signs Vitals: Temp Pulse Resp BP Pulse Ox 99.6 F 98 18 109/78 97 08/31/17 10:33 08/31/17 10:33 08/31/17 10:33 08/31/17 10:33 08/31/17 10:33 Course - Vital Signs Vital signs: Temp Pulse Resp BP Pulse Ox 99.6 F 98 18 109/78 97 08/31/17 10:33 08/31/17 10:33 08/31/17 10:33 08/31/17 10:33 08/31/17 10:33
[2017-08-31 11:25] LABS: ABSOLUTE BASOPHILS # (AUTO) 0.1 10^3/uL (0.0-0.2); ABSOLUTE LYMPHOCYTES (AUTO) 1.3 10^3/uL (0.5-4.7); ABSOLUTE MONOCYTES (AUTO) 0.9 10^3/uL (0.1-1.4); ABSOLUTE NEUT (AUTO) 14.8 10^3/uL (1.7-8.2); BASOPHILS % (AUTO) 0.5 % (0-2); EOSINOPHILS % (AUTO) 0.2 % (0-6); HEMOGLOBIN 13.6 g/dL (12.0-15.5); LYMPHOCYTES % (AUTO) 7.4 % (13-45); MEAN CORPUSCULAR HGB CONC 33.2 g/dL (32.0-36.0); MEAN CORPUSCULAR VOLUME 87 fl (80-97); MONOCYTES % (AUTO) 5.4 % (3-13); PLATELET COUNT 471 10^3/uL (150-450); RED CELL DISTRIBUTION WIDTH 14.8 % (11.5-14.0); SEGMENTED NEUTROPHILS % (AUTO) 86.5 % (42-78); TOTAL CELLS COUNTED % (AUTO) 100 %; WHITE BLOOD COUNT 17.1 10^3/uL (4.0-10.5)
[2017-08-31 11:45] LABS: ALANINE AMINOTRANSFERASE 63 U/L (9-52); ALKALINE PHOSPHATASE 84 U/L (38-126); ANION GAP 16 (5-19); ASPARTATE AMINO TRANSFERASE 24 U/L (14-36); BILIRUBIN,DIRECT 0.4 mg/dL (0.0-0.4); BILIRUBIN,TOTAL 1.6 mg/dL (0.2-1.3); BLOOD UREA NITROGEN 10 mg/dL (7-20); CARBON DIOXIDE 22 mmol/L (22-30); CHLORIDE 102 mmol/L (98-107); GLUCOSE 155 mg/dL (75-110); LIPASE 50.6 U/L (23-300); POTASSIUM 3.4 mmol/L (3.6-5.0); SODIUM 139.9 mmol/L (137-145); TOTAL PROTEIN 6.8 g/dL (6.3-8.2)
[2017-08-31 13:06] LABS: APPEARANCE,URINE SLIGHTLY-CLOUDY; BILIRUBIN,URINE NEGATIVE (NEGATIVE); COLOR,URINE AMBER; GLUCOSE, URINE NEGATIVE (NEGATIVE); KETONES,URINE TRACE mg/dL (NEGATIVE); LEUKOCYTE ESTERASE,URINE TRACE (NEGATIVE); NITRITE,URINE NEGATIVE (NEGATIVE); PROTEIN,URINE 30 mg/dL (NEGATIVE); URINE SPECIFIC GRAVITY 1.024; UROBILINOGEN,URINE NEGATIVE mg/dL (<2.0)
[2017-08-31] MEDS ORDERED: NORMAL SALINE 1000 ML 1,000 ML IV ONE (13:10)
[2017-08-31] MEDS ORDERED: VANCOMYCIN HCL INJ 1000 MG VIAL IV ONE (13:11)
--- NOTE | 2017-08-31 13:13 | RADIOLOGY REPORT (SQ) ---
EXAM DESCRIPTION: CT ABD/PELVIS WITH IV ONLY COMPLETED DATE/TIME: 08/31/2017 12:56 pm REASON FOR STUDY: RLQ pain; eval appendicitis or colitis or other pr COMPARISON: 08/19/2017 TECHNIQUE: CT scan of the abdomen and pelvis performed using helical scanning technique with dynamic intravenous contrast injection. No oral contrast. Images reviewed with lung, soft tissue, and bone windows. Reconstructed coronal and sagittal MPR images reviewed. Delayed images for evaluation of the urinary system also acquired. All images stored on PACS. All CT scanners at this facility use dose modulation, iterative reconstruction, and/or weight based d osing when appropriate to reduce radiation dose to as low as reasonably achievable (ALARA). [facility]: Dose Right [facility]: CareDose [facility]: Dose Right [facility]: Teradose 4D [facility]: [employer] CONTRAST TYPE AND DOSE: contrast/concentration: Isovue 370.00 mg/ml; Total Contrast Delivered: 100.0 ml; Total Saline Delivered: 70.0 ml RENAL FUNCTION: GFR > 60. RADIATION DOSE: CT Rad equipment meets quality standard of care and radiation dose reduction techniq ues were employed. CTDIvol: 15.4 - 19.3 mGy. DLP: 1920 mGy-cm.. LIMITATIONS: None. FINDINGS: LOWER CHEST: Hiatal hernia. LIVER: Normal size. No masses. No dilated ducts. SPLEEN: Normal size. No focal lesions. PANCREAS: No masses. No significant calcifications. No adjacent inflammation or peripancreatic fluid collections. Pancreatic duct not dilated. GALLBLADDER: Surgically absent. ADRENAL GLANDS: No significant masses or asymmetry. RIGHT KIDNEY AND URETER: No solid masses. No significant calcifications. No hydronephrosis or hyd roureter. LEFT KIDNEY AND URETER: No solid masses. No significant calcifications. No hydronephrosis or hydr oureter. AORTA AND VESSELS: No aneurysm. RETROPERITONEUM: No retroperitoneal adenopathy, hemorrhage or masses. BOWEL AND PERITONEAL CAVITY: Mesenteric inflammation adjacent to the anastomosis in the right lower q uadrant. There are several adjacent subcentimeter extraluminal gas bubbles. Gas fluid levels within nondilated loops of small bowel. APPENDIX: Not visualized. PELVIS: No mass. No free fluid. Normal bladder. ABDOMINAL WALL: Anterior abdominal wall hernia containing fat. BONES: No acute findings. OTHER: No other significant finding. IMPRESSION: Mesenteric inflammation right lower quadrant adjacent to anastomosis. There is adjacent extraluminal gas, probably related to recent surgery. No organized gas fluid collection. Correlati on with time line of surgical history is needed. TECHNICAL DOCUMENTATION: JOB ID: [id number] Quality ID # [id number]: Final reports with documentation of one or more dose reduction techniques (e.g., Au tomated exposure control, adjustment of the mA and/or kV according to patient size, use of iterative reconstruction technique) 2010 [employer]- All Rights Reserved Reading location - IP/workstation name: [email or web address]
--- NOTE | 2017-08-31 13:16 | ER Document Report ---
ED General - General Chief Complaint: Abdominal Pain Stated Complaint: ABDOMINAL PAIN Time Seen by Provider: 08/31/17 10:53 Mode of Arrival: Ambulatory Information source: Patient TRAVEL OUTSIDE OF THE [place] IN LAST 30 DAYS: No - HPI Notes: 66-year-old female with a past medical history of diabetes, CKD, DVT presents today with complaints of right lower quadrant abdominal pain with nausea and that started yesterday. She was seen in the emergency room on 08/19/16 for abdominal pain, they suspected that she had appendicitis, was brought to the OR where she had a lesion on her small intestine, and this was resected as well as her appendix. Patient had a ileocecal anastomosis done and was discharged on 08/25/17 to home without any issues. Patient states that she has had loose stools since the surgery, but has not had any issues with abdominal pain until 2 days ago. Denies any actual vomiting but reports nausea. Patient reports chills but denies fever. Patient was seen at her kidney doctors today, she had a low- grade fevers not feeling well today advised her to go to the emergency room. Denies chest pain,palpitations, shortness of breath, dyspnea,vomiting, hematuria,blurred vision, double vision, loss of vision, speech changes, LH, dizziness, syncope, headaches, wheezing, ST, URI, neck pain, weakness, bowel or bladder dysfunction, saddle anesthesia, numbness or tingling in bilateral upper or lower extremities equally, muscle paralysis, weakness in bilateral upper or lower extremities equally or rash. Denies IV drug use. - Related Data Allergies/Adverse Reactions: No Known Allergies Allergy (Verified 08/31/17 10:24) Past Medical History - General Information source: Patient, Parent - Social History Smoking Status: Never Smoker Frequency of alcohol use: None Drug Abuse: None Family History: Reviewed & Not Pertinent, Other - Strong family history of pulmonary disease, COPD, early Patient has suicidal ideation: No Patient has homicidal ideation: No - Past Medical History Cardiac Medical History: Denies: Hx Heart Attack, Hx Hypertension Pulmonary Medical History: Reports: Hx Bronchitis - sob, Hx Sleep Apnea - Uses CPAP Denies: Hx Asthma, Hx COPD, Hx Pneumonia Neurological Medical History: Denies: Hx Seizures Renal/ Medical History: Denies: Hx Peritoneal Dialysis Musculoskeltal Medical History: Reports Hx Arthritis Psychiatric Medical History: Denies: Hx Depression Past Surgical History: Reports: Other - Umbilical hernia repair 2014 Dr. Forbes with mesh; - Immunizations Hx Diphtheria, Pertussis, Tetanus Vaccination: Yes Hx Pneumococcal Vaccination: 04/03/12 Review of Systems - Review of Systems Notes: REVIEW OF SYSTEMS: CONSTITUTIONAL : Denies fever, chills, or sweats. Denies recent illness. EENT: Denies eye, ear, throat, or mouth pain or symptoms. Denies nasal or sinus congestion or discharge. Denies throat, tongue, or mouth swelling or difficulty swallowing. CARDIOVASCULAR: Denies chest pain. Denies palpitations or racing or irregular heart beat. Denies ankle edema. RESPIRATORY: Denies cough, cold, or chest congestion. Denies shortness of breath, difficulty breathing, or wheezing. GASTROINTESTINAL: Reports RLQ and umbilical pain. + nausea. Denies vomiting, or diarrhea. Denies blood in vomitus, stools, or per rectum. Denies black, tarry stools. Denies constipation. GENITOURINARY: Denies difficulty urinating, painful urination, burning, frequency, blood in urine, or discharge. FEMALE GENITOURINARY: Denies vaginal bleeding, heavy or abnormal periods, irregular periods. Denies vaginal discharge or odor. MUSCULOSKELETAL: Denies back or neck pain or stiffness. Denies joint pain or swelling. SKIN: Denies rash, lesions or sores. HEMATOLOGIC : Denies easy bruising or bleeding. LYMPHATIC: Denies swollen, enlarged glands. NEUROLOGICAL: Denies confusion or altered mental status. Denies passing out or loss of consciousness. Denies dizziness or lightheadedness. Denies headache. Denies weakness or paralysis or loss of use of either side. Denies problems with gait or speech. Denies sensory loss, numbness, or tingling. Denies seizures. PSYCHIATRIC: Denies anxiety or stress. Denies depression, suicidal ideation, or homicidal ideation. ALL OTHER SYSTEMS REVIEWED AND NEGATIVE. PHYSICAL EXAMINATION: GENERAL: Well-appearing, well-nourished and in no acute distress. HEAD: Atraumatic, normocephalic. EYES: Pupils equal round and reactive to light, extraocular movements intact, conjunctiva are normal. ENT: Nares patent, oropharynx clear without exudates. Moist mucous membranes. NECK: Normal range of motion, supple without lymphadenopathy LUNGS: Breath sounds clear to auscultation bilaterally and equal. No wheezes rales or rhonchi. HEART: Regular rate and rhythm without murmurs ABDOMEN: Soft, nontender, nondistended abdomen. Umbilical pain as well as left lower quadrant pain with rebound. right lower quadrant pain with rebound tenderness. no guarding, No masses appreciated. No CVA tenderness bilaterally. Female : deferred Musculoskeletal: Normal range of motion, no pitting or edema. No cyanosis. NEUROLOGICAL: Cranial nerves grossly intact. Normal speech, normal gait. Normal sensory, motor exams PSYCH: Normal mood, normal affect. SKIN: Warm, Dry, normal turgor, no rashes or lesions noted. Dictation was performed using [employer] voice recognition software Physical Exam - Vital signs Vitals: Temp Pulse Resp BP Pulse Ox 99.6 F 98 18 109/78 97 08/31/17 10:33 08/31/17 10:33 08/31/17 10:33 08/31/17 10:33 08/31/17 10:33 Course - Re-evaluation Re-evalutation: 08/31/17 15:16 A morbidly obese 63-year-old female presents to the emergency room due to worsening right lower quadrant pain that started approximately 1 day ago. Patient had a cecal ileocecal anastomosis on September 18, 2016. Patient symptoms completely resolved while at home. Laboratory findings leukocytosis of 17.5 with neutrophils, CMP unremarkable without any renal or liver dysfunction, electrolytes normal. CT abdomen pelvis shows that patient has mesenteric inflammation right lower quadrant adjacent to anastomosis. There is adjacent extraluminal gas, probably related to recent surgery. No organized gas fluid collection. Patient was started on IV vancomycin and Zosyn. Dr. Trujillo was consulted at 1430 for patient to be evaluated at bedside due to patient having exquisite right lower quadrant tenderness with leukocytosis. Dr. Beckford at bedside, stated he would like to admit patient for IV antibiotics but would like to keep patient n.p.o. until tomorrow. Would like hospitalist to admit consult. Dr. Tori Nelson, hospitalist, states she will admit patient to medical floor for IV antibiotics, monitor her leukocytosis and pain control - Vital Signs Vital signs: Temp Pulse Resp BP Pulse Ox 99.6 F 98 18 109/78 97 08/31/17 10:33 08/31/17 10:33 08/31/17 10:33 08/31/17 10:33 08/31/17 10:33 - Laboratory Result Diagrams: 08/31/17 11:12 08/31/17 11:12 Laboratory results interpreted by me: 08/31/17 08/31/17 08/31/17 11:12 11:12 11:12 WBC 17.1 H RDW 14.8 H Plt Count 471 H Seg Neutrophils % 86.5 H Lymphocytes % 7.4 L Absolute Neutrophils 14.8 H Potassium 3.4 L Glucose 155 H Total Bilirubin 1.6 H ALT 63 H C-Reactive Protein 156.8 H Urine Protein Urine Ketones Ur Leukocyte Esterase 08/31/17 12:30 WBC RDW Plt Count Seg Neutrophils % Lymphocytes % Absolute Neutrophils Potassium Glucose Total Bilirubin ALT C-Reactive Protein Urine Protein 30 H Urine Ketones TRACE H Ur Leukocyte Esterase TRACE H Discharge - Discharge Clinical Impression: Neutrophilic leukocytosis, Right lower quadrant pain Condition: Good Disposition: ADMITTED INPATIENT Admitting Provider: Hospitalist - Dr. Tori Nelson Unit Admitted: Medical Floor
[2017-08-31] MEDS ORDERED: PIPERACILLIN/TAZOBACTAM 3.375 GM VIAL IV ONE (13:39)
[2017-08-31] MEDS ORDERED: HYDROMORPHONE HCL INJ/PF 2 MG/ML AMPULE IV ONE (14:02)
[2017-08-31 14:34] LABS: INTERNATIONAL RATION (INR) 0.97; PROTHROMBIN TIME 13.5 SEC (11.4-15.4)
[2017-08-31 14:35] LABS: PARTIAL THROMBOPLASTIN TIME 33.9 SEC (23.5-35.8)
[2017-08-31] MEDS ORDERED: NORMAL SALINE 1000 ML 1,000 ML IV PRN (15:00)
--- NOTE | 2017-08-31 15:15 | PDOC CONSULTATION ---
Consultation Consult Date: 08/31/17 Consult reason:: abdominal pains History of Present Illness Admission Date/PCP: 08/31/2017 Patient complains of: Abdominal pains History of Present Illness: ANTHONY BECERRIL is a 66 year old female status post cecectomy and small bowel resection because of an infected ulceration of the cecum with ileocolic primary anastomosis using kristie 08/21/17. She was discharged a few days ago tolerating soft diet without abdominal pains with BM. Started yester day 08/30/17 with sudden abdominal pains with associared nausea and continued diarrhea. Ct scan today showed mesenteric inflammation at area of anastomosis. Small extraluminal air. Past Medical History Cardiac Medical History: Denies: Myocardial Infarction, Hypertension Pulmonary Medical History: Reports: Bronchitis - sob, Sleep Apnea - Uses CPAP Denies: Asthma, Chronic Obstructive Pulmonary Disease (COPD), Pneumonia Neurological Medical History: Denies: Seizures Musculoskeltal Medical History: Reports: Arthritis Psychiatric Medical History: Denies: Depression Hematology: Denies: Anemia Past Surgical History Past Surgical History: Reports: Other - Umbilical hernia repair 2014 Dr. Forbes with mesh; Social History Smoking Status: Never Smoker Frequency of Alcohol Use: Occasional Hx Recreational Drug Use: No - 6 months ago Drugs: None Hx Prescription Drug Abuse: No Family History Family History: Reviewed & Not Pertinent, Other - Strong family history of pulmonary disease, COPD, early Parental Family History Reviewed: Yes Children Family History Reviewed: No Sibling(s) Family History Reviewed.: No Medication/Allergy Home Medications: Fluticasone Propionate [Flonase Nasal [place] 50 Mcg/[place] 16 gm] 1 spray NASL DAILY 08/20/17 Furosemide [Lasix 20 mg Tablet] 20 mg PO QAM 08/20/17 Meloxicam [Mobic] 7.5 mg PO DAILY 08/20/17 Omeprazole 20 mg PO DAILY 08/20/17 Allergies/Adverse Reactions: No Known Allergies Allergy (Verified 08/31/17 10:24) Review of Systems Gastrointestinal: PRESENT: abdominal pain, nausea Genitourinary: PRESENT: other - no dysuria Musculoskeletal: PRESENT: other - no back pains Integumentary: PRESENT: other - no rash Psychiatric: PRESENT: other - no anxiety Physical Exam Vital Signs: Temp Pulse Resp BP Pulse Ox 99.6 F 98 18 109/78 97 08/31/17 10:33 08/31/17 10:33 08/31/17 10:33 08/31/17 10:33 08/31/17 10:33 Intake & Output 08/30/17 08/31/17 09/01/17 06:59 06:59 06:59 Weight 95.6 kg General appearance: PRESENT: mild distress Head exam: PRESENT: atraumatic, normocephalic Eye exam: PRESENT: conjunctiva pink Mouth exam: PRESENT: moist Neck exam: PRESENT: full ROM Respiratory exam: PRESENT: clear to auscultation tj Cardiovascular exam: PRESENT: RRR Pulses: PRESENT: normal radial pulses Vascular exam: PRESENT: normal capillary refill GI/Abdominal exam: PRESENT: soft, tenderness - RLQ, other - wound is clean and dry Rectal exam: PRESENT: deferred Extremities exam: PRESENT: full ROM Musculoskeletal exam: PRESENT: ambulatory Neurological exam: PRESENT: alert, oriented to person, oriented to place, oriented to time, oriented to situation Psychiatric exam: PRESENT: appropriate affect Skin exam: PRESENT: normal color, warm Results Laboratory Results: 08/31/17 11:12 08/31/17 11:12 08/31/17 08/31/17 08/31/17 11:12 11:12 11:12 WBC 17.1 H RBC 4.70 Hgb 13.6 Hct 41.0 MCV 87 MCH 29.0 MCHC 33.2 RDW 14.8 H Plt Count 471 H Seg Neutrophils % 86.5 H Lymphocytes % 7.4 L Monocytes % 5.4 Eosinophils % 0.2 Basophils % 0.5 Absolute Neutrophils 14.8 H Absolute Lymphocytes 1.3 Absolute Monocytes 0.9 Absolute Eosinophils 0.0 Absolute Basophils 0.1 Sodium 139.9 Potassium 3.4 L Chloride 102 Carbon Dioxide 22 Anion Gap 16 BUN 10 Creatinine 0.79 Est GFR ( Amer) > 60 Est GFR (Non-Af Amer) > 60 Glucose 155 H Calcium 10.0 Total Bilirubin 1.6 H AST 24 ALT 63 H Alkaline Phosphatase 84 C-Reactive Protein 156.8 H Total Protein 6.8 Albumin 4.0 Lipase 50.6 Urine Color Urine Appearance Urine pH Ur Specific [place] Urine Protein Urine Glucose (UA) Urine Ketones Urine Blood Urine Nitrite Ur Leukocyte Esterase Urine WBC (Auto) Urine RBC (Auto) 08/31/17 12:30 WBC RBC Hgb Hct MCV MCH MCHC RDW Plt Count Seg Neutrophils % Lymphocytes % Monocytes % Eosinophils % Basophils % Absolute Neutrophils Absolute Lymphocytes Absolute Monocytes Absolute Eosinophils Absolute Basophils Sodium Potassium Chloride Carbon Dioxide Anion Gap BUN Creatinine Est GFR ( Amer) Est GFR (Non-Af Amer) Glucose Calcium Total Bilirubin AST ALT Alkaline Phosphatase C-Reactive Protein Total Protein Albumin Lipase Urine Color [place] Urine Appearance SLIGHTLY-CLOUDY Urine pH 5.0 Ur Specific [place] 1.024 Urine Protein 30 H Urine Glucose (UA) NEGATIVE Urine Ketones TRACE H Urine Blood NEGATIVE Urine Nitrite NEGATIVE Ur Leukocyte Esterase TRACE H Urine WBC (Auto) 6 Urine RBC (Auto) 2 Impressions: Abdomen/Pelvis CT 08/31/17 10:58 IMPRESSION: Mesenteric inflammation right lower quadrant adjacent to anastomosis. There is adjacent extraluminal gas, probably related to recent surgery. No organized gas fluid collection. Correlation with time line of surgical history is needed. Assessment & Plan - Diagnosis (1) inflammation of mesentery at the anastom Is this a current diagnosis for this admission?: Yes - Time Time Spent: 30 to 50 Minutes - Inpatient Certification Medical Necessity: Need For IV Fluids, Need for Pain Control, Need for IV Antibiotics - Plan Summary Plan Summary: Keep NPO Start IV antibiotics after Blood Hydrate
[2017-08-31] MEDS ORDERED: METRONIDAZOLE 500 MG/NS RTU 100 ML IV ONE (16:00)
[2017-08-31] MEDS ORDERED: PANTOPRAZOLE SODIUM 40 MG VIAL IV ONE ×2 (17:00→19:00)
[2017-08-31] MEDS ORDERED: FENTANYL CITRATE INJ/PF 100 MCG/2 ML AMPUL IV PRN (17:01)
[2017-08-31] MEDS ORDERED: ONDANSETRON HCL INJ/PF 4 MG/2 ML SDV IV PRN (17:03)
--- NOTE | 2017-08-31 17:26 | PDOC H&P ---
History of Present Illness Admission Date/PCP: 08/31/17 15:29 Patient complains of: Abdominal pain postop abdominal surgery History of Present Illness: This is a 66-year-old woman who, several days ago, underwent abdominal surgery for what was thought to be an appendicitis but turned out to be an infected small bowel ulceration. He had small bowel resection with anastomosis. Biopsies showed no cancer per the patient. Has been doing well at home eating and drinking without difficulty, moving her bowels. 2 days ago she started having nausea and abdominal pain after eating a bagel. Today the abdominal pain was so severe that she came into the ER. She had a low-grade fever this morning. No evidence of blood in her stools. Past Medical History Cardiac Medical History: Reports: None Denies: Myocardial Infarction, Hypertension Pulmonary Medical History: Reports: Bronchitis - sob, Sleep Apnea - Uses CPAP Denies: Asthma, Chronic Obstructive Pulmonary Disease (COPD), Pneumonia EENT Medical History: Reports: None Neurological Medical History: Reports: None Denies: Seizures Endocrine Medical History: Reports: None Renal/ Medical History: Reports: None Malignancy Medical History: Reports: None GI Medical History: Reports: Other - Ulcerated small bowel lesion more recently resected Musculoskeltal Medical History: Reports: Arthritis Skin Medical History: Reports: None Psychiatric Medical History: Denies: Alcohol Dependency, Depression Hematology: Reports: Other - 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 Forbes with mesh Social History Information Source: Patient Occupation: Patient is a cook at [email or web address] Lives with: Friend, Other - She lives with her friend Yoan who she is known since she was a teenager, it is not really her boyfriend she states Smoking Status: Never Smoker Frequency of Alcohol Use: None Hx Recreational Drug Use: No - 6 months ago Drugs: None Hx Prescription Drug Abuse: No Past Social History Note: She is traveled quite a bit for fun Family History Family History: Other - Strong family history of pulmonary disease, COPD, early Parental Family History Reviewed: Yes - Mother from a hereditary lung disease, she did not know her father Children Family History Reviewed: Yes - She has 1 healthy daughter Sibling(s) Family History Reviewed.: Yes - 2 sisters have breast cancer Medication/Allergy Allergies/Adverse Reactions: No Known Allergies Allergy (Verified 08/31/17 10:24) Review of Systems Constitutional: PRESENT: fever(s). ABSENT: fatigue Eyes: ABSENT: visual disturbances Ears: ABSENT: hearing changes Nose, Mouth, and Throat: ABSENT: headache(s), sore throat Cardiovascular: ABSENT: dyspnea on exertion, edema, orthropnea, palpitations Gastrointestinal: PRESENT: abdominal pain. ABSENT: coffee ground emesis, constipation Musculoskeletal: ABSENT: joint swelling, muscle weakness Integumentary: PRESENT: other - Ecchymoses over bilateral legs status post vein stripping surgery in the last week. ABSENT: rash Neurological: ABSENT: confusion, dizziness, focal weakness, frequent falls, syncope Psychiatric: ABSENT: anxiety, depression Endocrine: ABSENT: cold intolerance, heat intolerance Allergic/Immunologic: ABSENT: seasonal rhinorrhea Physical Exam Vital Signs: Temp Pulse Resp BP Pulse Ox 98.1 F 67 16 128/65 H 95 08/31/17 16:54 08/31/17 16:54 08/31/17 16:54 08/31/17 16:54 08/31/17 16:54 General appearance: PRESENT: no acute distress, cooperative, morbidly obese Head exam: PRESENT: atraumatic, normocephalic Eye exam: PRESENT: conjunctiva pink, EOMI. ABSENT: scleral icterus Mouth exam: PRESENT: moist, neck supple Neck exam: ABSENT: lymphadenopathy Respiratory exam: PRESENT: clear to auscultation tj, unlabored. ABSENT: rales , rhonchi, wheezes Cardiovascular exam: PRESENT: RRR. ABSENT: systolic murmur Pulses: PRESENT: normal radial pulses Vascular exam: PRESENT: normal capillary refill GI/Abdominal exam: PRESENT: guarding, hypoactive bowel sounds, soft. ABSENT: distended, firm, rebound, rigid Rectal exam: PRESENT: deferred Extremities exam: ABSENT: pedal edema Neurological exam: PRESENT: alert, awake, oriented to person, oriented to place , oriented to situation, CN II-XII grossly intact Psychiatric exam: PRESENT: appropriate affect. ABSENT: anxious Skin exam: PRESENT: dry, intact, warm, other - eccymoses over bilat legs after vein stripping Results Impressions: Abdomen/Pelvis CT 08/31/17 10:58 IMPRESSION: Mesenteric inflammation right lower quadrant adjacent to anastomosis. There is adjacent extraluminal gas, probably related to recent surgery. No organized gas fluid collection. Correlation with time line of surgical history is needed. Assessment & Plan - Diagnosis (1) Neutrophilic leukocytosis Is this a current diagnosis for this admission?: Yes Plan: Secondary to intra-abdominal infection postop will treat with Cipro and Flagyl and monitor CBC. The blood cultures are pending. (2) Right lower quadrant pain Is this a current diagnosis for this admission?: Yes Plan: Secondary to postoperative infection at and around the anastomosis from recent small bowel resection. We are treating the infection with Cipro and Flagyl. Patient has fentanyl 25 mcg IV every 6 hours as needed pain. Of note the hospital is out of IV Dilaudid and IV morphine. She tolerated 50 mcg fentanyl doses in the ER and I am trying to find the lowest effective dose. (3) inflammation of mesentery at the anastom Is this a current diagnosis for this admission?: Yes Plan: Consider possible micro leak at the anastomosis site. There is small air which is probably postop. No evidence of large leak. No evidence of abscess. There is evidence of infection. We are treating with antibiotics. Surgeon is following. (4) Cecal lesion Is this a current diagnosis for this admission?: Yes Plan: Patient recently went to the OR with right lower quadrant pain thought to be secondary to appendicitis. An infected cecal lesion was found and resected. Biopsies were negative for malignancy. Surgical service is following. - Time Time Spent: 50 to 70 Minutes Anticipated discharge: Home - Inpatient Certification Based on my medical assessment, after consideration of the patient's comorbidities, presenting symptoms, or acuity I expect that the services needed warrant INPATIENT care.: Yes I certify that my determination is in accordance with my understanding of Medicare's requirements for reasonable and necessary INPATIENT services [42 CFR 412.3e].: Yes Medical Necessity: Need Close Monitoring Due to Risk of Patient Decompensation, Need For IV Fluids, Need for IV Antibiotics
[2017-08-31] MEDS ORDERED: CIPROFLOXACIN 400 MG/D5W RTU 400 MG/200 ML RTUPB IV SCH (18:00)
[2017-08-31] MEDS: POTASSI CL 20 MEQ/50 ML RIDER 20 MEQ/50 ML RTUPB IV SCH ×2 (18:24→20:51)
[2017-08-31] MEDS ORDERED: CIPROFLOXACIN 400 MG/D5W RTU 400 MG/200 ML RTUPB IV ONE (20:00)
[2017-08-31] MEDS: METRONIDAZOLE 500 MG/NS RTU 100 ML IV SCH (22:06)
[2017-09-01] MEDS: METRONIDAZOLE 500 MG/NS RTU 100 ML IV SCH ×2 (05:18→15:54)
[2017-09-01] MEDS ORDERED: CIPROFLOXACIN 400 MG/D5W RTU 400 MG/200 ML RTUPB IV SCH (06:00)
[2017-09-01] MEDS ORDERED: FLUCONAZOLE 100 MG TABLET PO ONE (06:30)
[2017-09-01 07:15] LABS: HEMATOCRIT 31.4 % (36.0-47.0); MEAN CORPUSCULAR HEMOGLOBIN 29.5 pg (27.0-33.4); MEAN CORPUSCULAR HGB CONC 33.5 g/dL (32.0-36.0); MEAN CORPUSCULAR VOLUME 88 fl (80-97); PLATELET COUNT 319 10^3/uL (150-450); RED BLOOD COUNT 3.57 10^6/uL (3.72-5.28); RED CELL DISTRIBUTION WIDTH 14.6 % (11.5-14.0); WHITE BLOOD COUNT 10.2 10^3/uL (4.0-10.5)
[2017-09-01 07:16] LABS: HEMOGLOBIN 10.5 g/dL (12.0-15.5)
[2017-09-01 07:24] LABS: ANION GAP 9 (5-19); BLOOD UREA NITROGEN 9 mg/dL (7-20); CALCIUM 8.7 mg/dL (8.4-10.2); CARBON DIOXIDE 23 mmol/L (22-30); CHLORIDE 108 mmol/L (98-107); GLUCOSE 114 mg/dL (75-110); POTASSIUM 3.3 mmol/L (3.6-5.0); SODIUM 139.6 mmol/L (137-145)
[2017-09-01 07:48] LABS: ALANINE AMINOTRANSFERASE 46 U/L (9-52); ALBUMIN 2.7 g/dL (3.5-5.0); ALKALINE PHOSPHATASE 57 U/L (38-126); ASPARTATE AMINO TRANSFERASE 38 U/L (14-36); BILIRUBIN,DIRECT 0.5 mg/dL (0.0-0.4); BILIRUBIN,TOTAL 0.6 mg/dL (0.2-1.3); TOTAL PROTEIN 5.1 g/dL (6.3-8.2)
[2017-09-01] MEDS: NORMAL SALINE 1000 ML 1,000 ML IV PRN (08:17)
[2017-09-01] MEDS: ENOXAPARIN SODIUM INJ 40 MG/0.4 ML DISP.SYRIN SUBCUT SCH (09:58)
[2017-09-01] MEDS ORDERED: PANTOPRAZOLE SODIUM 40 MG VIAL IV SCH (10:00)
[2017-09-01] MEDS ORDERED: MAGNESIUM CITRATE 296 ML BOTTLE PO ONE ×2 (10:30→12:30)
--- NOTE | 2017-09-01 10:53 | PDOC PROGRESS REPORT ---
Subjective Progress Note for:: 09/01/17 Reason For Visit: INTRA-ABDOMINAL INFECTION Patient complaining of being constipated. Has not had a bowel movement in several days. In general is feeling better compared to admission. Physical Exam Vital Signs: Temp Pulse Resp BP Pulse Ox 98.5 F 74 18 131/63 H 96 09/01/17 07:27 09/01/17 07:27 09/01/17 07:27 09/01/17 07:27 09/01/17 07:27 Pulse Oximeter Continuous Start: 08/31/17 15: 01 Freq: RTQ4 Status: Active Document 09/01/17 04:05 EAL (Rec: 09/01/17 04:12 EAL [id number]) Pulse Oximetry Assessment Oxygen Saturation (92-100) 95 Oxygen Delivery Method Room Air Fraction of Inspired Oxygen (FIO2) 21 Equipment Usage Equipment in Use Continuous SpO2 Machine # 11 Intake & Output 08/31/17 09/01/17 09/02/17 06:59 06:59 07:59 Weight 98.8 kg General appearance: PRESENT: no acute distress GI/Abdominal exam: PRESENT: other - Original dressings from 2 weeks ago still intact almost only incision related tenderness Results Laboratory Results: 09/01/17 06:42 09/01/17 06:42 09/01/17 09/01/17 09/01/17 06:42 06:42 06:42 WBC 10.2 RBC 3.57 L Hgb 10.5 L D Hct 31.4 L MCV 88 MCH 29.5 MCHC 33.5 RDW 14.6 H Plt Count 319 Sodium 139.6 Potassium 3.3 L Chloride 108 H Carbon Dioxide 23 Anion Gap 9 BUN 9 Creatinine 0.64 Est GFR ( Amer) > 60 Est GFR (Non-Af Amer) > 60 Glucose 114 H Calcium 8.7 Total Bilirubin 0.6 AST 38 H ALT 46 Alkaline Phosphatase 57 Total Protein 5.1 L Albumin 2.7 L Impressions: Abdomen/Pelvis CT 08/31/17 10:58 IMPRESSION: Mesenteric inflammation right lower quadrant adjacent to anastomosis. There is adjacent extraluminal gas, probably related to recent surgery. No organized gas fluid collection. Correlation with time line of surgical history is needed. Assessment & Plan - Diagnosis (1) Right lower quadrant pain Is this a current diagnosis for this admission?: Yes Plan: Patient clinically improved, white blood cell count now normal; the scan findings were reviewed; suspect changes around anastomosis overall postoperative low index of suspicion for intra-abdominal pathology. Her graft Recommendations: 1. Shower; leave dressing open to air 2. Give bottle of mag citrate; ordered 3. start diet and advance as tolerated. 4. Anticipate discharge home the next 18-24 hours. Above discussed with primary care team
[2017-09-01] MEDS: NYSTATIN TOPICAL POWDER 15 GM TP SCH ×2 (10:55→17:35)
[2017-09-01] MEDS ORDERED: PROMETHAZINE HCL 25 MG TABLET PO PRN (11:10)
--- NOTE | 2017-09-01 16:43 | PDOC PROGRESS REPORT ---
Subjective Progress Note for:: 09/01/17 Subjective:: still with lower abd pain right greater than left. Mild nausea, no emesis. Feels hungry, no BM today. no CP or SOB. No fever or chills. Reason For Visit: abdominal pain. INTRA-ABDOMINAL INFECTION vs. constipation. Physical Exam Vital Signs: Temp Pulse Resp BP Pulse Ox 98.0 F 72 20 131/65 H 97 09/01/17 15:37 09/01/17 15:37 09/01/17 15:37 09/01/17 15:37 09/01/17 15:37 Pulse Oximeter Continuous Start: 08/31/17 15: 01 Freq: RTQ4 Status: Active Document 09/01/17 12:00 HCR (Rec: 09/01/17 13:45 HCR [email or web address]) Pulse Oximetry Assessment Oxygen Saturation (92-100) 94 Oxygen Delivery Method Room Air Fraction of Inspired Oxygen (FIO2) 21 Equipment Usage Equipment in Use Continuous SpO2 Machine # 11 Intake & Output 08/31/17 09/01/17 09/02/17 06:59 06:59 07:59 Weight 98.8 kg General appearance: PRESENT: no acute distress, cooperative, morbidly obese Head exam: PRESENT: atraumatic, normocephalic Eye exam: PRESENT: conjunctiva pink, EOMI Ear exam: PRESENT: normal external ear exam Respiratory exam: PRESENT: clear to auscultation tj, unlabored. ABSENT: rales , rhonchi, wheezes Cardiovascular exam: PRESENT: RRR. ABSENT: systolic murmur Pulses: PRESENT: normal radial pulses Vascular exam: PRESENT: normal capillary refill GI/Abdominal exam: PRESENT: hypoactive bowel sounds, soft, tenderness. ABSENT: distended, firm, guarding Rectal exam: PRESENT: deferred Extremities exam: ABSENT: pedal edema Musculoskeletal exam: ABSENT: deformity Neurological exam: PRESENT: alert, awake, oriented to person, oriented to place , oriented to situation, CN II-XII grossly intact Psychiatric exam: PRESENT: appropriate affect. ABSENT: anxious Skin exam: PRESENT: dry, warm Results Laboratory Results: 09/01/17 06:42 09/01/17 06:42 09/01/17 09/01/17 09/01/17 06:42 06:42 06:42 WBC 10.2 RBC 3.57 L Hgb 10.5 L D Hct 31.4 L MCV 88 MCH 29.5 MCHC 33.5 RDW 14.6 H Plt Count 319 Sodium 139.6 Potassium 3.3 L Chloride 108 H Carbon Dioxide 23 Anion Gap 9 BUN 9 Creatinine 0.64 Est GFR ( Amer) > 60 Est GFR (Non-Af Amer) > 60 Glucose 114 H Calcium 8.7 Total Bilirubin 0.6 AST 38 H ALT 46 Alkaline Phosphatase 57 Total Protein 5.1 L Albumin 2.7 L Impressions: Abdomen/Pelvis CT 08/31/17 10:58 IMPRESSION: Mesenteric inflammation right lower quadrant adjacent to anastomosis. There is adjacent extraluminal gas, probably related to recent surgery. No organized gas fluid collection. Correlation with time line of surgical history is needed. Assessment & Plan - Diagnosis (1) Neutrophilic leukocytosis Is this a current diagnosis for this admission?: Yes Plan: Resolved. Thought to be related to a mild intra-abdominal infection. She has been on Cipro and Flagyl overnight and her white count has resolved. I will transition her to oral Cipro and Flagyl for a short course. (2) Right lower quadrant pain Is this a current diagnosis for this admission?: Yes Plan: Possibly related to a mild postoperative infection versus the patient. Pain is improving. We will stop opiate pain medications. Patient has had a bowel movement. Will monitor her pain. (3) inflammation of mesentery at the anastom Is this a current diagnosis for this admission?: Yes Plan: Normal postop versus old infection. As she had a neutrophilia with leukocytosis we will continue antibiotics for short course. (4) Cecal lesion Is this a current diagnosis for this admission?: Yes Plan: Found in her recent surgery, negative for malignancy, she is scheduled for surgical follow-up. (5) Constipation Is this a current diagnosis for this admission?: Yes Plan: Patient has had a bowel movement, prior to taking mag citrate. Will monitor patient closely to see if this helps resolve her pain. Medications have been discontinued. - Time Time Spent with patient: 25-34 minutes Anticipated discharge: Home - Inpatient Certification Medical Necessity: Need Close Monitoring Due to Risk of Patient Decompensation, Risk of Complication if Not Cared For in Hospital - I collaborated with the surgeon today.
[2017-09-01] MEDS: METRONIDAZOLE 500 MG TABLET PO SCH (22:05)
[2017-09-01] MEDS: CIPROFLOXACIN HCL 500 MG TABLET PO SCH (22:05)
[2017-09-02] MEDS: NORMAL SALINE 1000 ML 1,000 ML IV PRN (03:20)
[2017-09-02] MEDS: METRONIDAZOLE 500 MG TABLET PO SCH (05:44)
[2017-09-02 08:09] LABS: ABSOLUTE BASOPHILS # (AUTO) 0.1 10^3/uL (0.0-0.2); ABSOLUTE EOSINOPHILS # (AUTO) 0.2 10^3/uL (0.0-0.6); ABSOLUTE LYMPHOCYTES (AUTO) 0.9 10^3/uL (0.5-4.7); ABSOLUTE MONOCYTES (AUTO) 0.8 10^3/uL (0.1-1.4); ABSOLUTE NEUT (AUTO) 7.2 10^3/uL (1.7-8.2); BASOPHILS % (AUTO) 0.5 % (0-2); EOSINOPHILS % (AUTO) 1.8 % (0-6); HEMATOCRIT 32.3 % (36.0-47.0); HEMOGLOBIN 10.7 g/dL (12.0-15.5); LYMPHOCYTES % (AUTO) 9.4 % (13-45); MEAN CORPUSCULAR HEMOGLOBIN 29.2 pg (27.0-33.4); MEAN CORPUSCULAR HGB CONC 33.2 g/dL (32.0-36.0); MEAN CORPUSCULAR VOLUME 88 fl (80-97); MONOCYTES % (AUTO) 9.2 % (3-13); PLATELET COUNT 333 10^3/uL (150-450); RED BLOOD COUNT 3.68 10^6/uL (3.72-5.28); RED CELL DISTRIBUTION WIDTH 14.1 % (11.5-14.0); SEGMENTED NEUTROPHILS % (AUTO) 79.1 % (42-78); TOTAL CELLS COUNTED % (AUTO) 100 %; WHITE BLOOD COUNT 9.2 10^3/uL (4.0-10.5)
[2017-09-02 08:15] LABS: ANION GAP 7 (5-19); BLOOD UREA NITROGEN 4 mg/dL (7-20); CALCIUM 8.3 mg/dL (8.4-10.2); CARBON DIOXIDE 24 mmol/L (22-30); CHLORIDE 109 mmol/L (98-107); GLUCOSE 115 mg/dL (75-110); SODIUM 140.3 mmol/L (137-145)
[2017-09-02 08:20] LABS: POTASSIUM 2.9 mmol/L (3.6-5.0)
[2017-09-02] MEDS: POTASSI CL 20 MEQ/50 ML RIDER 20 MEQ/50 ML RTUPB IV SCH ×2 (08:35→10:23)
[2017-09-02] MEDS: CIPROFLOXACIN HCL 500 MG TABLET PO SCH (10:24)
[2017-09-02] MEDS: ENOXAPARIN SODIUM INJ 40 MG/0.4 ML DISP.SYRIN SUBCUT SCH (10:24)
[2017-09-02] MEDS: NYSTATIN TOPICAL POWDER 15 GM TP SCH (10:28)
--- NOTE | 2017-09-02 10:30 | PDOC DISCHARGE SUMMARY ---
General - Admit/Disc Date/PCP Admission Date/Primary Care Provider: 08/31/17 15:29 Discharge Date: 09/02/17 - Discharge Diagnosis (1) Constipation Is this a current diagnosis for this admission?: Yes Summary: Resolved continue bowel regimen (2) Right lower quadrant pain Is this a current diagnosis for this admission?: Yes Summary: Resolved continue bowel regimen (3) inflammation of mesentery at the anastom Is this a current diagnosis for this admission?: Yes Summary: Tolerating p.o., continue Cipro and Flagyl day 3 of 5. Follow-up with primary care at [facility] first 5-7 days and scheduled appointment with outpatient surgery on the for suture removal. Activity and advance diet as tolerated. - Additional Information Resuscitation Status: Full Code Discharge Diet: As Tolerated Discharge Activity: Activity As Tolerated Prescriptions: Ciprofloxacin HCl [Cipro 500 mg Tablet] 500 mg PO Q12 3 Days #6 tablet Metronidazole [Flagyl 500 mg Tablet] 500 mg PO Q8 3 Days #9 tablet Home Medications: Fluticasone Propionate [Flonase Nasal [place] 50 Mcg/[place] 16 gm] 1 spray NASL DAILY 08/31/17 Furosemide [Lasix 20 mg Tablet] 20 mg PO QAM 08/31/17 Meloxicam [Mobic] 7.5 mg PO DAILY 08/31/17 Omeprazole 20 mg PO DAILY 08/31/17 Ciprofloxacin HCl [Cipro 500 mg Tablet] 500 mg PO Q12 3 Days #6 tablet 09/02/17 Metronidazole [Flagyl 500 mg Tablet] 500 mg PO Q8 3 Days #9 tablet 09/02/17 History of Present Illness History of Present Illness: ANTHONY BECERRIL is a 66 year old female hospitalized with 5 days postoperative pain, imaging reveals mesenteric inflammation, constipation and mild ileus. Patient tolerated IV antibiotics and transition to p.o. Now tolerating p.o. diet. Feeling improved and at baseline. She is discharged home with outpatient follow-up. Physical Exam Vital Signs: Temp Pulse Resp BP Pulse Ox 98.5 F 67 18 138/67 H 95 09/02/17 07:45 09/02/17 07:45 09/02/17 07:45 09/02/17 07:45 09/02/17 07:45 Pulse Oximeter Continuous Start: 08/31/17 15: 01 Freq: RTQ4 Status: Active Document 09/02/17 04:00 EAL (Rec: 09/02/17 04:25 EAL [email or web address]) Pulse Oximetry Assessment Oxygen Saturation (92-100) 96 Oxygen Delivery Method Room Air Fraction of Inspired Oxygen (FIO2) 21 Equipment Usage Equipment Standby Continuous SpO2 Machine # 11 Intake & Output 08/31/17 09/01/17 09/02/17 11:59 11:59 12:59 Intake Total 500 Balance 500 Weight 98.8 kg 99 kg General appearance: PRESENT: no acute distress, well-developed, well-nourished Head exam: PRESENT: atraumatic, normocephalic Eye exam: PRESENT: conjunctiva pink, EOMI, PERRLA. ABSENT: scleral icterus Ear exam: PRESENT: normal external ear exam Mouth exam: PRESENT: moist, tongue midline Neck exam: ABSENT: carotid bruit, JVD, lymphadenopathy, thyromegaly Respiratory exam: PRESENT: clear to auscultation tj. ABSENT: rales, rhonchi, wheezes Cardiovascular exam: PRESENT: RRR. ABSENT: diastolic murmur, rubs, systolic murmur Pulses: PRESENT: normal dorsalis pedis pul Vascular exam: PRESENT: normal capillary refill GI/Abdominal exam: PRESENT: normal bowel sounds, soft. ABSENT: distended, guarding, mass, organolmegaly, rebound, tenderness Rectal exam: PRESENT: deferred Extremities exam: PRESENT: full ROM. ABSENT: calf tenderness, clubbing, pedal edema Neurological exam: PRESENT: alert, awake, oriented to person, oriented to place , oriented to time, oriented to situation, CN II-XII grossly intact. ABSENT: motor sensory deficit Psychiatric exam: PRESENT: appropriate affect, normal mood. ABSENT: homicidal ideation, suicidal ideation Skin exam: PRESENT: dry, intact, warm. ABSENT: cyanosis, rash Results Laboratory Results: 09/02/17 07:10 09/02/17 07:10 09/01/17 09/02/17 09/02/17 06:42 07:10 07:10 WBC 9.2 RBC 3.68 L Hgb 10.7 L Hct 32.3 L MCV 88 MCH 29.2 MCHC 33.2 RDW 14.1 H Plt Count 333 Seg Neutrophils % 79.1 H Lymphocytes % 9.4 L Monocytes % 9.2 Eosinophils % 1.8 Basophils % 0.5 Absolute Neutrophils 7.2 Absolute Lymphocytes 0.9 Absolute Monocytes 0.8 Absolute Eosinophils 0.2 Absolute Basophils 0.1 Sodium 140.3 Potassium 2.9 L* Chloride 109 H Carbon Dioxide 24 Anion Gap 7 BUN 4 L Creatinine 0.67 Est GFR ( Amer) > 60 Est GFR (Non-Af Amer) > 60 Glucose 115 H Calcium 8.3 L Total Bilirubin 0.6 AST 38 H ALT 46 Alkaline Phosphatase 57 Total Protein 5.1 L Albumin 2.7 L Impressions: Abdomen/Pelvis CT 08/31/17 10:58 IMPRESSION: Mesenteric inflammation right lower quadrant adjacent to anastomosis. There is adjacent extraluminal gas, probably related to recent surgery. No organized gas fluid collection. Correlation with time line of surgical history is needed. Qualifiers - * PATEINT BEING DISCHARGED WITH ANY OF THE FOLLOWING DIAGNOSIS?: No VTE patient discharged on overlapping Therapy?: No Plan Discharge Plan: Outpatient follow-up with primary care in 5-7 days, outpatient surgery on the as scheduled for suture removal. Advance diet and activity as tolerated. Continue day 3 of 5 ciprofloxacin and Flagyl.
--- NOTE | 2017-09-02 11:04 | PDOC PROGRESS REPORT ---
Subjective Reason For Visit: INTRA-ABDOMINAL INFECTION Patient doing well, feels great, took a shower, have kristie removed, tolerating diet Physical Exam Vital Signs: Temp Pulse Resp BP Pulse Ox 98.5 F 67 18 138/67 H 94 09/02/17 07:45 09/02/17 07:45 09/02/17 07:45 09/02/17 07:45 09/02/17 08:05 Pulse Oximeter Continuous Start: 08/31/17 15: 01 Freq: RTQ4 Status: Active Document 09/02/17 08:05 HCR (Rec: 09/02/17 10:34 HCR [email or web address]) Pulse Oximetry Assessment Oxygen Saturation (92-100) 94 Oxygen Delivery Method Room Air Equipment Usage Equipment Standby Continuous SpO2 Machine # 11 Intake & Output 09/01/17 09/02/17 09/03/17 05:59 06:59 06:59 Intake Total Balance Weight General appearance: PRESENT: no acute distress GI/Abdominal exam: PRESENT: other - Soft, nontender; incisions look excellent Results Laboratory Results: 09/02/17 07:10 09/02/17 07:10 09/02/17 09/02/17 07:10 07:10 WBC 9.2 RBC 3.68 L Hgb 10.7 L Hct 32.3 L MCV 88 MCH 29.2 MCHC 33.2 RDW 14.1 H Plt Count 333 Seg Neutrophils % 79.1 H Lymphocytes % 9.4 L Monocytes % 9.2 Eosinophils % 1.8 Basophils % 0.5 Absolute Neutrophils 7.2 Absolute Lymphocytes 0.9 Absolute Monocytes 0.8 Absolute Eosinophils 0.2 Absolute Basophils 0.1 Sodium 140.3 Potassium 2.9 L* Chloride 109 H Carbon Dioxide 24 Anion Gap 7 BUN 4 L Creatinine 0.67 Est GFR ( Amer) > 60 Est GFR (Non-Af Amer) > 60 Glucose 115 H Calcium 8.3 L Impressions: Abdomen/Pelvis CT 08/31/17 10:58 IMPRESSION: Mesenteric inflammation right lower quadrant adjacent to anastomosis. There is adjacent extraluminal gas, probably related to recent surgery. No organized gas fluid collection. Correlation with time line of surgical history is needed. Assessment & Plan - Diagnosis (1) Right lower quadrant pain Is this a current diagnosis for this admission?: Yes Plan: Hospital day 3, symptoms resolved, tolerating a diet Recommendations: 1. May discharge home, off antibiotics, and decreased physical activity but encourage walking 2. Return also surgical postoperative clearance.
[2017-09-02 11:41] VITALS: BP 147/29
--- NOTE | 2017-09-17 11:39 | Progress Note ---
Provider Note Provider Note: Blood culture results received from lab. Staph capitis in one blood culture bottle. This is likely skin devon and frequently a blood culture contaminant. No plan for antibiotic therapy at this time.
== END 2017-09-02 14:33 | disposition home or self-care (01) | DRG 394 ==
LOC: ER 10:22 → EH 15:29 → 2N 16:52
PROVIDERS: ADMIT Emergency Medicine; ATTEND Emergency Medicine
DX: K63.9 Disease of intestine, unspecified (principal); Z68.41 Body mass index [BMI] 40.0-44.9, adult; R10.9 Unspecified abdominal pain; K56.7 Ileus, unspecified; E11.9 Type 2 diabetes mellitus without complications; E66.01 Morbid (severe) obesity due to excess calories; K59.00 Constipation, unspecified; R10.31 Right lower quadrant pain; Z86.718 Personal history of other venous thrombosis and embolism
CPT/HCPCS: 36415; 74177; 80048; 80053; 80076; 81001; 83605; 83690; 85025; 85027; 85610; 85730; 86140; 87040; 87077; 87186; 94762; 96365; 96375; 96376; 99285; J0744; J1170; J1650; J2405; J2543; J3010; J3370; J3480; J3490; J7030; S0164

== ENCOUNTER 2017-09-14 10:15 | Emergency (ER) | payer MEDICARE, BC, OTHER ==
[2017-09-14] MEDS ORDERED: CEFTRIAXONE INJ 1000 MG VIAL IV ONE ×2 (10:43→14:01)
[2017-09-14] MEDS ORDERED: NORMAL SALINE 1000 ML 1,000 ML IV ONE (10:46)
--- NOTE | 2017-09-14 10:46 | ER Document Report ---
ED Medical Screen (RME) - General Chief Complaint: Flank Pain Stated Complaint: FLANK/LEG PAIN Time Seen by Provider: 09/14/17 10:39 Mode of Arrival: Wheelchair Information source: Patient Notes: 66-year-old female presents from family doctor's office with concerns for DVT, patient notes left leg pain has history of SVTs, had recent prolonged stay in the hospital 2, patient was diagnosed with UTI this morning and is symptomatic as well. Positive nitrates noted on the urinalysis, potassium was also noted to be 2.9 from blood work a few days prior I have greeted and performed a rapid initial assessment of this patient. A comprehensive ED assessment and evaluation of the patient, analysis of test results and completion of the medical decision making process will be conducted by additional ED providers. PHYSICAL EXAMINATION: GENERAL: Well-appearing, well-nourished and in no acute distress. HEAD: Atraumatic, normocephalic. EYES: Pupils equal round extraocular movements intact, conjunctiva are normal. ENT: Nares patent NECK: Normal range of motion LUNGS: No respiratory distress Musculoskeletal: Normal range of motion NEUROLOGICAL: Normal speech, normal gait. PSYCH: Normal mood, normal affect. SKIN: Warm, Dry, normal turgor, no rashes or lesions noted. TRAVEL OUTSIDE OF THE [place] IN LAST 30 DAYS: No - Related Data Allergies/Adverse Reactions: No Known Allergies Allergy (Verified 08/31/17 10:24) Past Medical History - Past Medical History Cardiac Medical History: Denies: Hx Heart Attack, Hx Hypertension Pulmonary Medical History: Reports: Hx Bronchitis - sob, Hx Sleep Apnea - Uses CPAP Denies: Hx Asthma, Hx COPD, Hx Pneumonia Neurological Medical History: Denies: Hx Seizures Renal/ Medical History: Denies: Hx Peritoneal Dialysis Musculoskeltal Medical History: Reports Hx Arthritis Psychiatric Medical History: Denies: Hx Depression Past Surgical History: Reports: Hx Cholecystectomy, Hx Orthopedic Surgery - Patient reports rotator cuff surgery after right shoulder injury with fxr, Hx Vascular Surgery - Recent vein stripping, Other - Umbilical hernia repair 2013 Dr. Forbes with mesh - Immunizations Hx Diphtheria, Pertussis, Tetanus Vaccination: Yes History of Influenza Vaccine for 03/2017 - 08/2017 Season: Refused Physical Exam - Vital signs Vitals: Temp Pulse Resp BP Pulse Ox 98.0 F 96 16 98/68 L 98 09/14/17 10:22 09/14/17 10:22 09/14/17 10:22 09/14/17 10:22 09/14/17 10:22 Course - Vital Signs Vital signs: Temp Pulse Resp BP Pulse Ox 98.0 F 96 16 98/68 L 98 09/14/17 10:22 09/14/17 10:22 09/14/17 10:22 09/14/17 10:22 09/14/17 10:22
--- NOTE | 2017-09-14 12:20 | ER Document Report ---
ED General - General Chief Complaint: Flank Pain Stated Complaint: FLANK/LEG PAIN Time Seen by Provider: 09/14/17 10:39 Mode of Arrival: Wheelchair Notes: The patient is a 66-year-old female, past medical history prior DVTs (only on 324 mg ASA), presents with 2 days of a swollen left leg, dysuria and some shortness of breath, worse on exertion. 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 She went to her primary care physician this morning, Dr. Torres, and was sent to the ER for further evaluation. She denies chest pain, fevers, nausea, vomiting, abdominal pain, headache or rash. TRAVEL OUTSIDE OF THE [place] IN LAST 30 DAYS: No - Related Data Allergies/Adverse Reactions: No Known Allergies Allergy (Verified 08/31/17 10:24) Past Medical History - General Information source: Patient - Social History Smoking Status: Never Smoker Frequency of alcohol use: Rare Drug Abuse: None Family History: Other - Strong family history of pulmonary disease, COPD, early Patient has suicidal ideation: No Patient has homicidal ideation: No - Past Medical History Cardiac Medical History: Denies: Hx Heart Attack, Hx Hypertension Pulmonary Medical History: Reports: Hx Bronchitis - sob, Hx Sleep Apnea - Uses CPAP Denies: Hx Asthma, Hx COPD, Hx Pneumonia Neurological Medical History: Denies: Hx Seizures Renal/ Medical History: Denies: Hx Peritoneal Dialysis Musculoskeltal Medical History: Reports Hx Arthritis Psychiatric Medical History: Denies: Hx Depression Past Surgical History: Reports: Hx Cholecystectomy, Hx Orthopedic Surgery - Patient reports rotator cuff surgery after right shoulder injury with fxr, Hx Vascular Surgery - Recent vein stripping, Other - Umbilical hernia repair 2014 Dr. Forbes with mesh - Immunizations Hx Diphtheria, Pertussis, Tetanus Vaccination: Yes Hx Pneumococcal Vaccination: 04/03/12 Review of Systems - Review of Systems Notes: REVIEW OF SYSTEMS: CONSTITUTIONAL: -fevers, -chills EENT: -eye pain, -difficulty swallowing, -nasal congestion CARDIOVASCULAR: -chest pain, -syncope. RESPIRATORY: -cough, +SOB GASTROINTESTINAL: -abdominal pain, -nausea, -vomiting, -diarrhea GENITOURINARY: -dysuria, -hematuria MUSCULOSKELETAL: +left leg swelling and pain, -back pain, -neck pain SKIN: -rash or skin lesions. HEMATOLOGIC: -easy bruising or bleeding. LYMPHATIC: -swollen, enlarged glands. NEUROLOGICAL: -altered mental status or loss of consciousness, -headache, - neurologic symptoms PSYCHIATRIC: -anxiety, -depression. ALL OTHER SYSTEMS REVIEWED AND NEGATIVE. Physical Exam - Vital signs Vitals: Temp Pulse Resp BP Pulse Ox 98.0 F 96 16 98/68 L 98 09/14/17 10:09/14/17 10:09/14/17 10:09/14/17 10:09/14/17 10:22 - Notes Notes: PHYSICAL EXAMINATION: GENERAL: Well-appearing, well-nourished and in no acute distress. HEAD: Atraumatic, normocephalic. EYES: Pupils equal round and reactive to light, extraocular movements intact, sclera anicteric, conjunctiva are normal. ENT: nares patent, oropharynx clear without exudates. Moist mucous membranes. NECK: Normal range of motion, supple without lymphadenopathy LUNGS: Mild tachypnea. Rales in left lower lobe. HEART: Regular rate and rhythm without murmurs ABDOMEN: Soft, nontender, normoactive bowel sounds. No guarding, no rebound. No masses appreciated. EXTREMITIES: Moderate swelling and tenderness of entire left lower extremity with strong distal pulses. Normal range of motion. No cyanosis or discoloration. NEUROLOGICAL: Cranial nerves grossly intact. Normal speech. Normal sensory and motor exams. PSYCH: Normal mood, normal affect. SKIN: Well-healing abdominal surgical wounds. Warm, Dry, normal turgor, no rashes or lesions noted. Course - Re-evaluation Re-evalutation: 66-year-old with swollen left leg after abdominal surgery a month ago. Ultrasound shows extensive clot burden of her DVTs and SVTs in her left leg. Spoke to the radiologist, Dr. Mcknight, who recommends transfer to facility for possible clot retrieval/vascular intervention due to the extensive nature of her clots. 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 Heparin started. Pt also with evidence of a UTI and Rocephin started. Pt is hypokalemic and this was repleted in the ER. 09/14/17 14:[address] Breen ([facility]) and he has accepted the patient. He agrees with the heparin drip. TPA is a relative contraindication due to her recent abdominal surgery. There are no beds at [facility], but she is on the waiting list. Will continue to monitor patient for worsening symptoms and update them if any new issues arise. 09/14/17 14:50 CTA Chest shows a PE in the left lower lobe causing possible pulmonary infarction and small right upper lobe PEs. Spoke to Dr. Breen about results. Pt is HD stable at this time. Requesting pain meds for her leg. - Vital Signs Vital signs: Temp Pulse Resp BP Pulse Ox 98.0 F 96 25 H 145/74 H 99 09/14/17 10:22 09/14/17 10:22 09/14/17 13:01 09/14/17 14:01 09/14/17 14:01 - Laboratory Result Diagrams: 09/14/17 12:56 09/14/17 12:56 Laboratory results interpreted by me: 09/14/17 09/14/17 09/14/17 12:29 12:56 12:56 WBC 11.5 H Hgb 11.9 L RDW 14.9 H Seg Neutrophils % 80.3 H Lymphocytes % 10.8 L Absolute Neutrophils 9.2 H Potassium 2.9 L* Carbon Dioxide 31 H Urine Protein 100 H Urine Glucose (UA) 50 H Urine Ketones TRACE H Urine Blood SMALL H Urine Urobilinogen 2.0 H Ur Leukocyte Esterase MODERATE H - Diagnostic Test Radiology reviewed: Image reviewed, Reports reviewed Radiology results interpreted by me: PEDRO LUIS US: Diffuse acute DVT and superficial venous thrombosis throughout the left leg. CTA Chest: Small right upper lobe, moderate to large left lower lobe pulmonary emboli, acute. Small left pleural effusion with minimal left posterior costophrenic sulcus airspace disease likely small pulmonary infarct. Critical Care Note - Critical Care Note Total time excluding time spent on procedures (mins): 45 Discharge - Discharge Clinical Impression: Hypokalemia DVT (deep venous thrombosis) Qualifiers: DVT location: lower extremity Affected thrombotic vein of extremity: unspecified vein of extremity Chronicity: acute Laterality: left Qualified Code( s): I82.402 - Acute embolism and thrombosis of unspecified deep veins of left lower extremity UTI (urinary tract infection) Qualifiers: Urinary tract infection type: acute cystitis Hematuria presence: without hematuria Qualified Code(s): N30.00 - Acute cystitis without hematuria Pulmonary embolism Qualifiers: Pulmonary embolism type: other Chronicity: acute Acute cor pulmonale presence: without acute cor pulmonale Qualified Code(s): I26.99 - Other pulmonary embolism without acute cor pulmonale Condition: Stable Disposition: [facility] Referrals: CHRISTIANO BENEDICT PA-C [Primary Care Provider] - Follow up as needed
[2017-09-14 12:57] LABS: APPEARANCE,URINE CLOUDY; BILIRUBIN,URINE NEGATIVE (NEGATIVE); GLUCOSE, URINE 50 mg/dL (NEGATIVE); KETONES,URINE TRACE mg/dL (NEGATIVE); LEUKOCYTE ESTERASE,URINE MODERATE (NEGATIVE); NITRITE,URINE NEGATIVE (NEGATIVE); PROTEIN,URINE 100 mg/dL (NEGATIVE); URINE SPECIFIC GRAVITY 1.027
[2017-09-14 13:03] LABS: COLOR,URINE YELLOW
[2017-09-14 13:07] LABS: ABSOLUTE BASOPHILS # (AUTO) 0.1 10^3/uL (0.0-0.2); ABSOLUTE EOSINOPHILS # (AUTO) 0.1 10^3/uL (0.0-0.6); ABSOLUTE LYMPHOCYTES (AUTO) 1.2 10^3/uL (0.5-4.7); ABSOLUTE MONOCYTES (AUTO) 0.9 10^3/uL (0.1-1.4); ABSOLUTE NEUT (AUTO) 9.2 10^3/uL (1.7-8.2); BASOPHILS % (AUTO) 0.6 % (0-2); EOSINOPHILS % (AUTO) 0.4 % (0-6); HEMATOCRIT 36.9 % (36.0-47.0); HEMOGLOBIN 11.9 g/dL (12.0-15.5); LYMPHOCYTES % (AUTO) 10.8 % (13-45); MEAN CORPUSCULAR HEMOGLOBIN 28.2 pg (27.0-33.4); MEAN CORPUSCULAR HGB CONC 32.4 g/dL (32.0-36.0); MEAN CORPUSCULAR VOLUME 87 fl (80-97); MONOCYTES % (AUTO) 7.9 % (3-13); PLATELET COUNT 386 10^3/uL (150-450); RED BLOOD COUNT 4.23 10^6/uL (3.72-5.28); RED CELL DISTRIBUTION WIDTH 14.9 % (11.5-14.0); SEGMENTED NEUTROPHILS % (AUTO) 80.3 % (42-78); TOTAL CELLS COUNTED % (AUTO) 100 %; WHITE BLOOD COUNT 11.5 10^3/uL (4.0-10.5)
[2017-09-14 13:17] LABS: INTERNATIONAL RATION (INR) 1.06; PARTIAL THROMBOPLASTIN TIME 28.7 SEC (23.5-35.8); PROTHROMBIN TIME 14.6 SEC (11.4-15.4)
[2017-09-14 13:20] LABS: ALANINE AMINOTRANSFERASE 38 U/L (9-52); ALBUMIN 3.5 g/dL (3.5-5.0); ALKALINE PHOSPHATASE 75 U/L (38-126); ANION GAP 9 (5-19); ASPARTATE AMINO TRANSFERASE 21 U/L (14-36); BILIRUBIN,DIRECT 0.4 mg/dL (0.0-0.4); BLOOD UREA NITROGEN 12 mg/dL (7-20); CALCIUM 8.8 mg/dL (8.4-10.2); CARBON DIOXIDE 31 mmol/L (22-30); CHLORIDE 102 mmol/L (98-107); GLUCOSE 106 mg/dL (75-110)
[2017-09-14 13:23] LABS: POTASSIUM 2.9 mmol/L (3.6-5.0)
--- NOTE | 2017-09-14 13:35 | RADIOLOGY REPORT (SQ) ---
EXAM DESCRIPTION: VENOUS UNILATERAL LOWER COMPLETED DATE/TIME: 09/14/2017 1:18 pm REASON FOR STUDY: left lower extremity COMPARISON: Left lower extremity venous Doppler 07/19/2014 TECHNIQUE: Dynamic and static sherman scale and color images acquired of the left leg venous system. Se lected spectral images acquired with additional compression and augmentation maneuvers. The contralat eral common femoral vein and saphenofemoral junction were also imaged. Images stored on PACS. LIMITATIONS: None. FINDINGS: LEFT COMMON FEMORAL: Occlusive clot throughout the common femoral vein. FEMORAL: Occlusive clot throughout the superficial femoral vein POPLITEAL: Occlusive clot throughout the popliteal vein CALF VESSELS: Occlusive Conteh throughout the posterior tibial and peroneal veins GSV and SSV: Occlusive clot throughout the left greater saphenous and lesser saphenous veins ANY DEEP VENOUS INSUFFICIENCY: Not evaluated. ANY EVIDENCE OF POPLITEAL CYST: No. OTHER: No other significant finding. RIGHT COMMON FEMORAL VEIN AND SAPHENOFEMORAL JUNCTION: Normal phasicity, compression and augmentation. No visualized echogenic material on sherman scale. No de fects on color images. IMPRESSION: Diffuse acute DVT and superficial venous thrombosis throughout the left leg. COMMENT: Pertinent findings on the imaging study reported as a CRITICAL RESULT to MAIDA CRYSTAL DO at13:29 on 09/14/2017. Category of Critical Result: Extensive left leg deep and superficial acute venous thrombosis TECHNICAL DOCUMENTATION: JOB ID: [id number]- All Rights Reserved Reading location - IP/workstation name: [email or web address]
[2017-09-14] MEDS ORDERED: HEPARIN SODIUM,PORCINE/D5W 25,000 UNIT/250 ML RTUINJ IV PRN (13:43)
[2017-09-14] MEDS ORDERED: HEPARIN SOD (PORCINE) 1,000 UNIT/ML 10 ML VIAL IV ONE (13:43)
--- NOTE | 2017-09-14 14:41 | RADIOLOGY REPORT (SQ) ---
EXAM DESCRIPTION: CTA CHEST COMPLETED DATE/TIME: 09/14/2017 2:18 pm REASON FOR STUDY: +DVT, SOB, hypotensive COMPARISON: Venous Doppler same date TECHNIQUE: CT scan of the chest performed using helical scanning technique with dynamic intravenous contrast injection. Images reviewed with lung, soft tissue and bone windows. Reconstructed coronal and sagittal MPR images reviewed. Additional 3 dimensional post-processing performed to develop Maximal Intensity Projection images (NM P). All images stored on PACS. All CT scanners at this facility use dose modulation, iterative reconstruction, and/or weight based d osing when appropriate to reduce radiation dose to as low as reasonably achievable (ALARA). [facility]: Dose Right [facility]: CareDose [facility]: Dose Right [facility]: Teradose 4D [facility]: SampleBoard CONTRAST TYPE AND DOSE: contrast/concentration: Isovue 370.00 mg/ml; Total Contrast Delivered: 78.0 ml; Total Saline Delivered: 90.0 ml Contrast bolus optimized for the pulmonary arteries. Not diagnostic for the aorta. RENAL FUNCTION: Creatinine 0.8 RADIATION DOSE: CT Rad equipment meets quality standard of care and radiation dose reduction techniq ues were employed. CTDIvol: 22.3 - 33.1 mGy. DLP: 863 mGy-cm. . LIMITATIONS: None. FINDINGS: LUNGS AND PLEURA: Small left pleural effusion. Minimal left posterior costophrenic sulcus airspace disease likely pulmonary infarct. Right hemithorax unremarkable. AORTA AND GREAT VESSELS: No aneurysm. Contrast bolus not optimized for the aorta. HEART: No pericardial effusion. No significant coronary artery calcifications. PULMONARY ARTERIES: There is a pulmonary embolus to the left lower lobe pulmonary artery, extending i nto the lateral basal, medial basal, and posterior basal segments. Small pulmonary embolus to the right upper lobe apical segmental pulmonary artery. HILAR AND MEDIASTINAL STRUCTURES: No identified masses or abnormal nodes. HARDWARE: None in the chest. UPPER ABDOMEN: No significant findings. Limited exam. THYROID AND OTHER SOFT TISSUES: No masses. No adenopathy. BONES: No acute or significant finding. 3D MIPS: Confirm above findings. OTHER: No other significant finding. IMPRESSION: Small right upper lobe, moderate to large left lower lobe pulmonary emboli, acute. Small left pleural effusion with minimal left posterior costophrenic sulcus airspace disease likely s mall pulmonary infarct COMMENT: Pertinent findings on the imaging study reported as a CRITICAL RESULT to TWIN NATARAJAN MD at14:30 on 09/14/2017. Category of Critical Result: Pulmonary emboli Quality ID # [id number]: Final reports with documentation of one or more dose reduction techniques (e.g., Au tomated exposure control, adjustment of the mA and/or kV according to patient size, use of iterative reconstruction technique) TECHNICAL DOCUMENTATION: JOB ID: [id number] [employer]- All Rights Reserved Reading location - IP/workstation name: [facility] [place]
[2017-09-14] MEDS ORDERED: MORPHINE SULFATE 10 MG/ML INJ IV ONE (15:11)
[2017-09-14] MEDS: POTASSI CL 20 MEQ/50 ML RIDER 20 MEQ/50 ML RTUPB IV SCH ×2 (15:34→17:33)
[2017-09-14] MEDS ORDERED: HEPARIN SOD (PORCINE) 1,000 UNIT/ML 10 ML VIAL IV PRN (16:44)
[2017-09-14 20:03] VITALS: BP 135/77
--- NOTE | 2017-09-14 20:26 | ER Document Report ---
Doctor's Note Notes: 09/14/17 20:23 Patient has been seen and evaluated. Stable for transport at this time
== END 2017-09-14 20:25 | disposition short-term general hospital (02) ==
LOC: ER 10:15
DX: E87.6 Hypokalemia (principal); I82.402 Acute embolism and thrombosis of unspecified deep veins of left lower extremity; N30.00 Acute cystitis without hematuria; I26.99 Other pulmonary embolism without acute cor pulmonale; R10.9 Unspecified abdominal pain; Z86.718 Personal history of other venous thrombosis and embolism; Z79.82 Long term (current) use of aspirin; Z90.49 Acquired absence of other specified parts of digestive tract
CPT/HCPCS: 96376; 99291; 96361; 96375; 96365; 96366; 96367; 36415; 87040; 83735; 85025; 85610; 85730; 80053; 81001; 93971; 71275; J1644 ×2; J2270; J0696; J3480; J7030

== ENCOUNTER → 2017-11-27 | Outpatient (CLI) | payer MEDICARE, BC, OTHER ==
--- NOTE | 2017-11-27 10:11 | RADIOLOGY REPORT (SQ) ---
EXAM DESCRIPTION: CHEST PA/LATERAL COMPLETED DATE/TIME: 11/27/2017 9:59 am REASON FOR STUDY: SHORTNESS OF BREATH COMPARISON: 08/20/2017. EXAM PARAMETERS: NUMBER OF VIEWS: two views TECHNIQUE: Digital Frontal and Lateral radiographic views of the chest acquired. RADIATION DOSE: NA LIMITATIONS: none FINDINGS: LUNGS AND PLEURA: No opacities, masses or pneumothorax. No pleural effusion. MEDIASTINUM AND HILAR STRUCTURES: No masses or contour abnormalities. HEART AND VASCULAR STRUCTURES: Heart normal size. No evidence for failure. BONES: No acute findings. Degenerative changes in the spine. HARDWARE: None in the chest. OTHER: No other significant finding. IMPRESSION: NO SIGNIFICANT RADIOGRAPHIC FINDING IN THE CHEST. TECHNICAL DOCUMENTATION: JOB ID: [id number] [employer]- All Rights Reserved Reading location - IP/workstation name: [email or web address]
== END ==
LOC: OD 09:41
PROVIDERS: ATTEND Internal Medicine Cardiovascular Disease
DX: R06.02 Shortness of breath (principal)
CPT/HCPCS: 71046

== ENCOUNTER → 2018-01-22 | Outpatient (CLI) | payer MEDICARE ==
--- NOTE | 2018-01-22 09:39 | WOMENS IMAGING REPORT ---
EXAM DESCRIPTION: 3D SCREENING MAMMO BILAT COMPLETED DATE/TIME: 01/22/2018 9:30 am REASON FOR STUDY: BILATERAL SCREENING MAMMO 3D/Z12.31 Z12.31 ENCNTR SCREEN MAMMOGRAM FOR MALIGNANT NEOPLASM OF NICK N95.9 UNSPECIFIED MENOPAUSAL AND PERIMENOPAUSAL DISORDER COMPARISON: 01/03/2017 and 04/23/2015. TECHNIQUE: Standard craniocaudal and mediolateral oblique views of each breast recorded using digita l acquisition and breast tomosynthesis. LIMITATIONS: None. FINDINGS: No masses, calcifications or architectural distortion. No areas of suspicion. Read with the assistance of CAD. .[facility] - R2 Cenova Version 1.3 .[facility] Imaging - R2 Cenova Version 1.3 .[facility] - R2 Cenova Version 2.4 .[facility] [place]2 Cenova Version 2.4 .[facility] - R2 Mud Cleaner Operator Version 9.2 IMPRESSION: NORMAL MAMMOGRAM. BIRADS 1. BREAST DENSITY: a. The breasts are almost entirely fatty. BIRAD: 1 NEGATIVE RECOMMENDATION: ROUTINE SCREENING COMMENT: The patient has been notified of the results by letter per [place] requirements. Additional no tification policies are in place for contacting patient with suspicious or incomplete findings. Quality ID #225: The [employer] recommends an annual screening mammogram for women aged 40 years or over. This facility utilizes a reminder system to ensure that all patients receive reminder letters, and/or direct phone calls for appointments. This includes reminders for routine scr eening mammograms, diagnostic mammograms, or other Breast Imaging Interventions when appropriate. Th is patient will be placed in the appropriate reminder system. The [employer] (ACR) has developed recommendations for screening MRI of the breast s in certain patient populations, to be used in conjunction with mammography. Breast MRI surveillanc e may be appropriate for women with more than 20% lifetime risk of developing breast cancer as deter mined by genetic testing, significant family history of the disease, or history of mantle radiation f or Hodgkins Disease. ACR Practice Guidelines 2008. DBT Technology DBT is a type of tomographic mammography. With conventional mammography, overlapping breast tissue ma y make lesions difficult to detect, even with good compression. DBT uses an x-ray tube that rotates a round the breast, taking images at different angles. These images are then combined to create thin sl ices of the breast that the radiologist can view as a 3D reconstruction. The Wysiwyg unit can perform full-field digital mammograms (2D imaging); or DBT (3D imaging); or both, in a combination mode that quickly performs both the mammogram and the tomosynthesis scan while the breast is still compressed. PQRS 6045F: Fluoroscopic imaging is not utilized for breast tomosynthesis. TECHNICAL DOCUMENTATION: FINDING NUMBER: (1) ASSESSMENT: (1) JOB ID: [id number] [employer]- All Rights Reserved Reading location - IP/workstation name: [email or web address]
--- NOTE | 2018-01-22 10:02 | WOMENS IMAGING REPORT ---
EXAM DESCRIPTION: BONE DENSITY HIP/SPINE COMPLETED DATE/TIME: 01/22/2018 9:30 am REASON FOR STUDY: BONE DENSITY/ N95.9 Z12.31 ENCNTR SCREEN MAMMOGRAM FOR MALIGNANT NEOPLASM OF NICK N95.9 UNSPECIFIED MENOPAUSAL AND PERIMENOPAUSAL DISORDER COMPARISON: None. TECHNIQUE: Dual-Energy X-ray Absorptiometry (DEXA) of the AP Spine and Hip. LIMITATIONS: None. FINDINGS: LUMBAR SPINE: The bone mineral density (BMD) measured from L1-L4 in the AP projection correlates with a T-score of -0.4, which is normal as defined by the World Health Organization. HIP: The bone mineral density (BMD) measured in the left hip correlates with a T-score of -1.7, which is o steopenia as defined by the World Health Organization. IMPRESSION: 1. LUMBAR SPINE: Normal 2. HIP: Osteopenia COMMENT: The World Health Organization defines low BMD as follows: T-score: Normal: Greater than -1.0 Osteopenia: Between -1.0 and -2.5 Osteoporosis: Less than -2.5 without fractures Established osteoporosis: Less than -2.5 with fractures In general, you may wish to consider: Diagnosis Treatment Follow-up DEXA Normal BMD Prevention 2-3 years Osteopenia Prevention/Therapy 1-2 years Osteoporosis Therapy Yearly TECHNICAL DOCUMENTATION: JOB ID: [id number] [employer]- All Rights Reserved Reading location - IP/workstation name: [email or web address]
== END ==
LOC: RAD 08:23
PROVIDERS: ATTEND Physician Assistant
DX: Z12.31 Encounter for screening mammogram for malignant neoplasm of breast (principal); N95.9 Unspecified menopausal and perimenopausal disorder; M86.8X8 Other osteomyelitis, other site
CPT/HCPCS: 77063; 77067; 77080

== ENCOUNTER → 2018-03-25 | Day surgery (SDC) | payer MEDICARE ==
[~2018-03-25] MED LIST: BETAMET ACET/BETAMET NA INJ 6 MG/1 ML INJ PRN
--- NOTE | 2018-03-25 15:29 | RADIOLOGY REPORT (SQ) ---
EXAM DESCRIPTION: INJ EPI/SUBARCH/ C/T W/O CATH COMPLETED DATE/TIME: 03/25/2018 3:06 pm REASON FOR STUDY: LUMBAR RADICULOPATHY (M54.16) M54.16 RADICULOPATHY, LUMBAR REGION COMPARISON: None. FLUOROSCOPY TIME: 6 seconds 3 images saved to PACS. TECHNIQUE: Risks and benefits of the procedure were discussed with the patient, and informed consent was obtained. After fluoroscopic localization, sterile skin prep with Betadine, and local lidocaine for skin and deep tissue anesthesia, a 22-gauge needle was used to acces the dorsal lumbar epidural s pace via paracentral approach at the left L5-1 level. At this point, a small amount of Omnipaque-3 00 nonionic contrast was injected to confirm needle placement in the epidural space. Subsequently, 6 mg of Celestone and 1.5 ml of dilute Marcaine was injected without complication. LIMITATIONS: None. FINDINGS: None. IMPRESSION: TECHNICALLY SUCCESSFUL LUMBAR EPIDURAL STEROID INJECTION ABOVE. COMMENT: Patient medication list reviewed:Yes- Quality ID# [id number]:Eligible professional attests to docu menting in the medical record they obtained, updated, or reviewed the patient's current medications.. Quality ID 145: Final reports for procedures using fluoroscopy that document radiation exposure antoinette inge, or exposure time and number of fluorographic images (if radiation exposure indices are not avail able) TECHNICAL DOCUMENTATION: JOB ID: [id number] [email or web address]- All Rights Reserved Reading location - IP/workstation name: [email or web address]
== END ==
LOC: RAD 13:14
PROVIDERS: ATTEND Physician Assistant
DX: M54.16 Radiculopathy, lumbar region (principal)
CPT/HCPCS: 62321; J0702

== ENCOUNTER → 2019-03-07 | Outpatient (CLI) | payer MEDICARE, BC ==
[2019-03-07 10:45] LABS: ANION GAP 12 (5-19); BLOOD UREA NITROGEN 17 mg/dL (7-20); CALCIUM 9.7 mg/dL (8.4-10.2); CARBON DIOXIDE 25 mmol/L (22-30); CHLORIDE 104 mmol/L (98-107); GLUCOSE 119 mg/dL (75-110); POTASSIUM 3.5 mmol/L (3.6-5.0)
== END ==
LOC: OD 09:22
PROVIDERS: ATTEND Internal Medicine Nephrology
DX: I12.9 Hypertensive chronic kidney disease with stage 1 through stage 4 chronic kidney disease, or unspecified chronic kidney disease (principal); N18.2 Chronic kidney disease, stage 2 (mild); E55.9 Vitamin D deficiency, unspecified; D51.9 Vitamin B12 deficiency anemia, unspecified
CPT/HCPCS: 36415; 80048; 82306; 82607

== ENCOUNTER → 2019-06-12 | Outpatient (CLI) | payer MEDICARE, BC ==
--- NOTE | 2019-06-12 10:39 | RADIOLOGY REPORT (SQ) ---
EXAM DESCRIPTION: CT HEAD WITHOUT COMPLETED DATE/TIME: 06/12/2019 10:20 am REASON FOR STUDY: DIZZINES AND GIDDINESS (R42), DYSARTHRIA AND ANARTHRIA (R47.1) R47.1 DYSARTHRIA A ND ANARTHRIA R42 DIZZINESS AND GIDDINESS COMPARISON: None. TECHNIQUE: Axial images acquired through the brain without intravenous contrast. Images reviewed wi th bone, brain and subdural windows. Additional sagittal and coronal reconstructions were generated. Images stored on PACS. All CT scanners at this facility use dose modulation, iterative reconstruction, and/or weight based d osing when appropriate to reduce radiation dose to as low as reasonably achievable (ALARA). [facility]: Dose Right [facility]: CareDose [facility]: Dose Right [facility]: Teradose 4D [facility]: BUMP Network RADIATION DOSE: CT Rad equipment meets quality standard of care and radiation dose reduction techniq ues were employed. CTDIvol: 48.5 mGy. DLP: 855 mGy-cm. mGy. LIMITATIONS: None. FINDINGS: VENTRICLES: Normal size and contour. CEREBRUM: No masses. No hemorrhage. No midline shift. No evidence for acute infarction. Normal gra y/white matter differentiation. No areas of low density in the white matter. CEREBELLUM: No masses. No hemorrhage. No alteration of density. No evidence for acute infarction. EXTRAAXIAL SPACES: No fluid collections. No masses. ORBITS AND GLOBE: No intra- or extraconal masses. Normal contour of globe without masses. CALVARIUM: No fracture. PARANASAL SINUSES: No fluid or mucosal thickening. SOFT TISSUES: No mass or hematoma. OTHER: No other significant finding. IMPRESSION: No acute intracranial pathology. EVIDENCE OF ACUTE STROKE: NO. COMMENT: Quality ID # 436: Final reports with documentation of one or more dose reduction techniques (e.g., Automated exposure control, adjustment of the mA and/or kV according to patient size, use of iterative reconstruction technique) TECHNICAL DOCUMENTATION: JOB ID: [id number] [employer]- All Rights Reserved Reading location - IP/workstation name: [email or web address]
== END ==
LOC: RAD 09:58
PROVIDERS: ATTEND Physician Assistant
DX: R42 Dizziness and giddiness (principal)
CPT/HCPCS: 70450

== ENCOUNTER → 2020-03-11 | Outpatient (CLI) | payer MEDICARE ==
--- NOTE | 2020-03-11 09:44 | WOMENS IMAGING REPORT ---
EXAM DESCRIPTION: 3D SCREENING MAMMO BILAT IMAGES COMPLETED DATE/TIME: 03/11/2020 8:55 am REASON FOR STUDY: Z12.31 ENCNTR SCREEN MAMMOGRAM FOR MALIGNANT NEOPLASM OF BREAST Z12.31 ENCNTR SCR EEN MAMMOGRAM FOR MALIGNANT NEOPLASM OF NICK COMPARISON: Priors dating back to 2014. . EXAM PARAMETERS: Views: Standard craniocaudal and mediolateral oblique views of each breast recorded using digital acquisition and breast tomosynthesis. Read with the assistance of CAD. [facility] - R2 Quality Reviewer Version 9.2 LIMITATIONS: None. FINDINGS: No suspicious masses, suspicious calcifications or architectural distortion. No areas of c oncern. IMPRESSION: NEGATIVE MAMMOGRAM. BIRADS 1. BREAST DENSITY: b. There are scattered areas of fibroglandular density. BIRAD: ASSESSMENT: 1 NEGATIVE RECOMMENDATION: ROUTINE SCREENING COMMENT: The patient has been notified of the results by letter per MQSA requirements. Additional no tification policies are in place for contacting patient with suspicious or incomplete findings. Quality ID #225: The [place] [employer] recommends an annual screening mammogram for women aged 40 years or over. This facility utilizes a reminder system to ensure that all patients receive reminder letters, and/or direct phone calls for appointments. This includes reminders for routine scr eening mammograms, diagnostic mammograms, or other Breast Imaging Interventions when appropriate. Th is patient will be placed in the appropriate reminder system. TECHNICAL DOCUMENTATION: FINDING NUMBER: (1) ASSESSMENT: (1) JOB ID: [id number] 2010 [employer]- All Rights Reserved Reading location - IP/workstation name: [email or web address]
== END ==
LOC: WI 08:36
PROVIDERS: ATTEND Physician Assistant
DX: Z12.31 Encounter for screening mammogram for malignant neoplasm of breast (principal)
CPT/HCPCS: 77063; 77067

== ENCOUNTER → 2020-03-22 | Outpatient (CLI) | payer MEDICARE, BC ==
[2020-03-22 09:50] LABS: ABSOLUTE BASOPHILS # (AUTO) 0.1 10^3/uL (0.0-0.2); ABSOLUTE EOSINOPHILS # (AUTO) 0.1 10^3/uL (0.0-0.6); ABSOLUTE MONOCYTES (AUTO) 0.6 10^3/uL (0.1-1.4); ABSOLUTE NEUT (AUTO) 4.2 10^3/uL (1.7-8.2); HEMOGLOBIN 11.9 g/dL (12.0-15.5); LYMPHOCYTES % (AUTO) 28.2 % (13-45); MEAN CORPUSCULAR HEMOGLOBIN 30.8 pg (27.0-33.4); MEAN CORPUSCULAR VOLUME 88 fl (80-97); PLATELET COUNT 294 10^3/uL (150-450); RED BLOOD COUNT 3.85 10^6/uL (3.72-5.28); RED CELL DISTRIBUTION WIDTH 14.4 % (11.5-14.0); SEGMENTED NEUTROPHILS % (AUTO) 59.8 % (42-78); TOTAL CELLS COUNTED % (AUTO) 100 %; WHITE BLOOD COUNT 7.1 10^3/uL (4.0-10.5)
[2020-03-22 10:09] LABS: ALBUMIN 4.4 g/dL (3.5-5.0); ANION GAP 12 (5-19); BLOOD UREA NITROGEN 11 mg/dL (7-20); CALCIUM 9.2 mg/dL (8.4-10.2); CARBON DIOXIDE 25 mmol/L (22-30); CHLORIDE 106 mmol/L (98-107); GLUCOSE 101 mg/dL (75-110); PHOSPHORUS 3.1 mg/dL (2.5-4.5)
[2020-03-22 10:22] LABS: APPEARANCE,URINE SLIGHTLY-CLOUDY; BILIRUBIN,URINE NEGATIVE (NEGATIVE); COLOR,URINE YELLOW; GLUCOSE, URINE NEGATIVE (NEGATIVE); KETONES,URINE NEGATIVE (NEGATIVE); LEUKOCYTE ESTERASE,URINE MODERATE (NEGATIVE); NITRITE,URINE NEGATIVE (NEGATIVE); PROTEIN,URINE 30 mg/dL (NEGATIVE); URINE SPECIFIC GRAVITY 1.021; UROBILINOGEN,URINE NEGATIVE mg/dL (<2.0)
[2020-03-22 10:50] LABS: POTASSIUM 2.8 mmol/L (3.6-5.0)
[2020-03-23 13:37] LABS: CREATININE URINE 240.8 mg/dL (Not Estab.); MICROALBUMIN URINE 20.8 ug/mL (Not Estab.)
== END ==
LOC: OD 09:20
PROVIDERS: ATTEND Internal Medicine Nephrology
DX: I12.9 Hypertensive chronic kidney disease with stage 1 through stage 4 chronic kidney disease, or unspecified chronic kidney disease (principal); N18.3 Chronic kidney disease, stage 3 (moderate); E87.6 Hypokalemia; E55.9 Vitamin D deficiency, unspecified; R31.9 Hematuria, unspecified
CPT/HCPCS: 36415; 80069; 81001; 82043; 82306; 82570; 83970; 85025; 87086

== ENCOUNTER → 2020-03-29 | Outpatient (CLI) | payer MEDICARE, BC | LOC: OD 11:27 | PROVIDERS: ATTEND Internal Medicine Nephrology | DX: E87.6 Hypokalemia (principal) | CPT/HCPCS: 36415; 84132 ==